=== PATIENT | male | born 1990 | race Caucasian/White ===

== ENCOUNTER 2017-04-09 10:46 | Inpatient (IN) | payer OTHER ==
[2017-04-09] MEDS ORDERED: SODIUM CHLORIDE 0.9% 1,000 ML IV STA (12:56)
[2017-04-09] MEDS ORDERED: HYDROmorphone 1 MG/ML 1 ML SYRINGE IVP STA (12:56)
[2017-04-09] MEDS ORDERED: AMPICILLIN-SULBACTAM 3 GM in SODIUM CHLORIDE 0.9% 100 ML IVPB STA (12:57)
[2017-04-09 13:38] LABS: Basophils % (A) 0 %; Eosinophils % (A) 0 %; HCT 42.9 % (39.0-53.0); HGB 14.4 gm/dL (13.0-17.5); Lymphocytes # (A) 0.8 k/uL (1.0-4.8); Lymphocytes % (A) 6 %; MCH 29.4 pg (25.0-35.0); MCHC 33.7 g/dL (31.0-37.0); MCV 87.3 fL (80.0-100.0); Monocytes # (A) 0.4 k/uL (0-1.0); Monocytes % (A) 3 %; Neutrophils # (A) 11.2 k/uL (1.3-7.7); Neutrophils % (A) 89 %; Platelet Count 189 k/uL (150-450); RBC 4.91 m/uL (4.30-5.90); WBC 12.6 k/uL (3.8-10.6)
--- NOTE | 2017-04-09 13:39 | ED ---
General Adult HPI <Supa Meredith - Last Filed: 04/09/17 15:35> - General Source: patient, RN notes reviewed, old records reviewed Mode of arrival: ambulatory Limitations: no limitations <Danyelle Gusman - Last Filed: 04/09/17 15:57> - General Chief complaint: Dental/Oral Stated complaint: facial swelling Time Seen by Provider: 04/09/17 12:12 - History of Present Illness Initial comments: This is a 26-year-old male who presents to the emergency department with chief complaint of facial swelling. Patient was seen by myself yesterday in the emergency department with complaint of left upper lip swelling. 2 nights ago he attempted to pop a small pimple on his left upper lip and when he woke the next morning his lip was tender and swollen. On exam yesterday left upper lip was indurated and firm. Today patient presents to the emergency department with chief complaint of spreading of the swelling. He states when he awoke this morning his left jaw, cheek and eye were swollen and tender. He states that his left upper lip has progressively worsened as well. Patient states that he had some amoxicillin left over at home so took that last night. He did not moss picker his prescription of Bactrim today as he came straight to the emergency department. Denies fever, chills, chest pain, shortness of breath, abdominal pain, nausea or vomiting, constipation or diarrhea, dysuria or hematuria, numbness or tingling, headache or vision changes. (Danyelle Gusman) - Related Data Previous Rx's Medication Instructions Recorded Cephalexin [Keflex] 500 mg PO Q12HR #20 cap 04/08/17 Sulfamethox-Tmp 800-160Mg [Bactrim 1 tab PO Q12HR #20 tab 04/08/17 DS 800-160 mg] Allergies Allergy/AdvReac Type Severity Reaction Status Date / Time ibuprofen [From Motrin] AdvReac Rash/Hives Verified 04/09/17 13:29 Review of Systems ROS Other: All systems not noted in ROS Statement are negative. <Supa Meredith - Last Filed: 04/09/17 15:35> ROS Other: All systems not noted in ROS Statement are negative. <Danyelle Gusman - Last Filed: 04/09/17 15:57> ROS Statement: Those systems with pertinent positive or pertinent negative responses have been documented in the HPI. Past Medical History Past Medical History: Diabetes Mellitus History of Any Multi-Drug Resistant Organisms: None Reported Past Surgical History: Cholecystectomy Past Psychological History: No Psychological Hx Reported Smoking Status: Never smoker Past Alcohol Use History: Occasional Past Drug Use History: None Reported <Danyelle Gusman - Last Filed: 04/09/17 15:57> General Exam Limitations: no limitations <Danyelle Gusman - Last Filed: 04/09/17 15:57> Course <Supa Meredith - Last Filed: 04/09/17 15:35> <[place]cliff LakeGerard brownDanyelle Salty - Last Filed: 04/09/17 15:57> Vital Signs 04/09/17 04/09/17 04/09/17 11:17 13:33 13:42 Temperature 99 F 98.1 F Pulse Rate 112 H 104 H 99 Respiratory 18 15 Rate Blood Pressure 136/96 142/85 142/95 O2 Sat by Pulse 99 97 100 Oximetry 04/09/17 15:13 Temperature Pulse Rate 117 H Respiratory 18 Rate Blood Pressure 134/88 O2 Sat by Pulse 100 Oximetry - Reevaluation(s) Reevaluation #1: 04/09/17 15:35 PA supervision: I did proceed evaluate the patient did discuss findings with him and family members or present. Patient does demonstrate a facial cellulitis on the left likely secondary from his previous episode that prompted his last admission. He does have evidence of DKA. We placed on insulin drip with appropriate antibiotics. They come ice will be started. I did discuss the case with Dr. Hayward (Supa Meredith) Medical Decision Making - Lab Data Result diagrams: 04/09/17 13:24 04/09/17 13:24 <Supa Meredith - Last Filed: 04/09/17 15:35> - Lab Data Result diagrams: 04/09/17 13:24 04/09/17 13:24 <[place]cliff LakeDanyelle Salty - Last Filed: 04/09/17 15:57> - Medical Decision Making This is a 26-year-old male who presents to the emergency department with chief complaint of left-sided facial swelling. Labs were drawn and patient was started on 3 g of IV Unasyn. Patient has a history of diabetes. Patient had a glucose of 581 with a positive acetone, 4+ glucose and 2+ ketones in the urine. Patient was given 8 units of Humulin while in the emergency department. This brought his glucose down to 344. CBC revealed a slightly elevated white count at 12.8 with left shift at 11.2. Patient will be admitted to the telemetry floor with diagnoses of DKA and facial cellulitis under Dr. Hayward. He'll be started on vancomycin and an insulin drip. Patient is in no acute distress at this time. Patient was made aware of these findings and plan. He is in agreement voices understanding. All questions were answered. (Danyelle Gusman) - Lab Data Lab Results 04/09/17 04/09/17 04/09/17 Range/Units 13:24 13:24 13:24 WBC 12.6 H (3.8-10.6) k/uL RBC 4.91 (4.30-5.90) m/uL Hgb 14.4 (13.0-17.5) gm/dL Hct 42.9 (39.0-53.0) % MCV 87.3 (80.0-100.0) fL MCH 29.4 (25.0-35.0) pg MCHC 33.7 (31.0-37.0) g/dL RDW 12.0 (11.5-15.5) % Plt Count 189 (150-450) k/uL Neutrophils % 89 % Lymphocytes % 6 % Monocytes % 3 % Eosinophils % 0 % Basophils % 0 % Neutrophils # 11.2 H (1.3-7.7) k/uL Lymphocytes # 0.8 L (1.0-4.8) k/uL Monocytes # 0.4 (0-1.0) k/uL Eosinophils # 0.0 (0-0.7) k/uL Basophils # 0.0 (0-0.2) k/uL Sodium 132 L (137-145) mmol/L Potassium 4.5 (3.5-5.1) mmol/L Chloride 94 L (98-107) mmol/L Carbon Dioxide 18 L (22-30) mmol/L Anion Gap 20 mmol/L BUN 10 (9-20) mg/dL Creatinine 0.93 (0.66-1.25) mg/dL Est GFR (MDRD) Af Amer >60 (>60 ml/min/1.73 sqM) Est GFR (MDRD) Non-Af >60 (>60 ml/min/1.73 sqM) Glucose 581 H* (74-99) mg/dL POC Glucose (mg/dL) (75-99) mg/dL POC Glu Can Cutter ID Calcium 9.1 (8.4-10.2) mg/dL Total Bilirubin 1.1 (0.2-1.3) mg/dL AST 23 (17-59) U/L ALT 47 (21-72) U/L Alkaline Phosphatase 146 H (38-126) U/L Total Protein 5.9 L (6.3-8.2) g/dL Albumin 3.5 (3.5-5.0) g/dL Urine Color Urine Appearance (Clear) Urine pH (5.0-8.0) Ur Specific [place] (1.001-1.035) Urine Protein (Negative) Urine Glucose (UA) (Negative) Urine Ketones (Negative) Urine Blood (Negative) Urine Nitrite (Negative) Urine Bilirubin (Negative) Urine Urobilinogen (<2.0) mg/dL Ur Leukocyte Esterase (Negative) Acetone, Qual Positive (Negative) 04/09/17 04/09/17 Range/Units 14:39 15:37 WBC (3.8-10.6) k/uL RBC (4.30-5.90) m/uL Hgb (13.0-17.5) gm/dL Hct (39.0-53.0) % MCV (80.0-100.0) fL MCH (25.0-35.0) pg MCHC (31.0-37.0) g/dL RDW (11.5-15.5) % Plt Count (150-450) k/uL Neutrophils % % Lymphocytes % % Monocytes % % Eosinophils % % Basophils % % Neutrophils # (1.3-7.7) k/uL Lymphocytes # (1.0-4.8) k/uL Monocytes # (0-1.0) k/uL Eosinophils # (0-0.7) k/uL Basophils # (0-0.2) k/uL Sodium (137-145) mmol/L Potassium (3.5-5.1) mmol/L Chloride (98-107) mmol/L Carbon Dioxide (22-30) mmol/L Anion Gap mmol/L BUN (9-20) mg/dL Creatinine (0.66-1.25) mg/dL Est GFR (MDRD) Af Amer (>60 ml/min/1.73 sqM) Est GFR (MDRD) Non-Af (>60 ml/min/1.73 sqM) Glucose (74-99) mg/dL POC Glucose (mg/dL) 344 H (75-99) mg/dL POC Glu Can Cutter ID Wendy Flynn Calcium (8.4-10.2) mg/dL Total Bilirubin (0.2-1.3) mg/dL AST (17-59) U/L ALT (21-72) U/L Alkaline Phosphatase (38-126) U/L Total Protein (6.3-8.2) g/dL Albumin (3.5-5.0) g/dL Urine Color Colorless Urine Appearance Clear (Clear) Urine pH 5.5 (5.0-8.0) Ur Specific [place] 1.023 (1.001-1.035) Urine Protein Negative (Negative) Urine Glucose (UA) 4+ H (Negative) Urine Ketones 2+ H (Negative) Urine Blood Negative (Negative) Urine Nitrite Negative (Negative) Urine Bilirubin Negative (Negative) Urine Urobilinogen <2.0 (<2.0) mg/dL Ur Leukocyte Esterase Negative (Negative) Acetone, Qual (Negative) Disposition <Supa Meredith - Last Filed: 04/09/17 15:35> Time of Disposition: 15:57 <Danyelle Gusman - Last Filed: 04/09/17 15:57> Clinical Impression: Diabetic keto-acidosis, Facial cellulitis Disposition: ADMITTED IP TO THIS HOSP Condition: Stable Referrals: None,Stated [Primary Care Provider] - 1-2 days
[2017-04-09 13:46] LABS: ALT 47 U/L (21-72); AST 23 U/L (17-59); Albumin 3.5 g/dL (3.5-5.0); Alkaline Phosphatase 146 U/L (38-126); Anion Gap 20 mmol/L; Blood Urea Nitrogen 10 mg/dL (9-20); Calcium 9.1 mg/dL (8.4-10.2); Carbon Dioxide 18 mmol/L (22-30); Chloride 94 mmol/L (98-107); Potassium 4.5 mmol/L (3.5-5.1); Sodium 132 mmol/L (137-145); Total Bilirubin 1.1 mg/dL (0.2-1.3); Total Protein 5.9 g/dL (6.3-8.2)
[2017-04-09 13:55] LABS: Glucose 581 mg/dL (74-99)
[2017-04-09] MEDS ORDERED: INSULIN REGULAR 100 UNIT/ML VIAL IV ONE (14:18)
[2017-04-09 14:42] LABS: Appearance,Urine Clear (Clear); Bilirubin,Urine Negative (Negative); Blood,Urine Negative (Negative); Color,Urine Colorless; Glucose,Urine (UA) 4+ (Negative); Leukocyte Esterase,Urine Negative (Negative); Nitrite,Urine Negative (Negative); PH, Urine 5.5 (5.0-8.0); Protein,Urine Negative (Negative); Specific Gravity,Urine 1.023 (1.001-1.035); Urobilinogen,Urine <2.0 mg/dL (<2.0)
[2017-04-09 14:47] LABS: Ketones,Urine 2+ (Negative)
[2017-04-09 15:38] LABS: Glucose,Whole Blood 344 mg/dL (75-99)
[2017-04-09] MEDS ORDERED: ONDANSETRON 4 MG/2 ML VIAL IVP PRN (15:42)
[2017-04-09] MEDS ORDERED: ACETAMINOPHEN TAB 325 MG TAB PO PRN (15:42)
[2017-04-09] MEDS ORDERED: NALOXONE 0.4 MG/ML 1 ML VIAL IV PRN (15:42)
[2017-04-09] MEDS ORDERED: INSULIN REGULAR 100 UNIT in SODIUM CHLORIDE 0.9% 100 ML IV SCH (15:45)
[2017-04-09] MEDS ORDERED: VANCOMYCIN IV PER PHARMACY 1 EACH MISC MISCELLANE PRN (15:49)
[2017-04-09] MEDS ORDERED: VANCOMYCIN 1,250 MG in SODIUM CHLORIDE 0.9% 250 ML IVPB STA (15:58)
[2017-04-09] MEDS: HYDROmorphone 1 MG/ML 1 ML SYRINGE IVP PRN ×3 (16:35→23:08)
[2017-04-09 17:38] LABS: Anion Gap 15 mmol/L; Blood Urea Nitrogen 9 mg/dL (9-20); Carbon Dioxide 21 mmol/L (22-30); Chloride 97 mmol/L (98-107); Glucose 370 mg/dL (74-99); Potassium 4.3 mmol/L (3.5-5.1); Sodium 133 mmol/L (137-145)
[2017-04-09] MEDS ORDERED: RX INFO: IV CONTRAST WAS GIVEN 1 EACH MISC MISCELLANE PRN (17:50)
--- NOTE | 2017-04-09 17:56 | P.HPIM ---
History of Present Illness H&P Date: 04/09/17 Chief Complaint: Left facial swelling/pain 26-year-old male who presents to the emergency department with chief complaint of left sided facial swelling, redness and pain. Patient was seen in the emergency department yesterday with complaint of left upper lip swelling. 2 nights ago he attempted to pop a small pimple on his left upper lip and when he woke the next morning his lip was tender and swollen. According to the emergency physician's note yesterday his left upper lip was indurated and firm. Today patient presents to the emergency department with chief complaint of spreading of the swelling, redness to all of the left side of the face. He states when he awoke this morning his left jaw, cheek and eye were swollen and painful. Patient states that he had some amoxicillin left over at home so took that last night. He did not refill his prescription of Bactrim that he was given yesterday in the emergency department. Denies fever, chills, chest pain, shortness of breath, abdominal pain, nausea or vomiting, constipation or diarrhea, dysuria or hematuria, numbness or tingling, headache or vision changes. Review of Systems 12 point review of system was performed, negative except for HPI Past Medical History Past Medical History: Diabetes Mellitus (type 1) History of Any Multi-Drug Resistant Organisms: None Reported Past Surgical History: Cholecystectomy Past Psychological History: No Psychological Hx Reported Smoking Status: Never smoker Past Alcohol Use History: Occasional Past Drug Use History: None Reported Medications and Allergies Home Medications Medication Instructions Recorded Confirmed Type Cephalexin [Keflex] 500 mg PO Q12HR #20 cap 04/08/17 04/09/17 Rx Sulfamethox-Tmp 800-160Mg [Bactrim 1 tab PO Q12HR #20 tab 04/08/17 04/09/17 Rx DS 800-160 mg] Allergies Allergy/AdvReac Type Severity Reaction Status Date / Time ibuprofen [From Motrin] AdvReac Rash/Hives Verified 04/09/17 13:29 Physical Exam Vitals: Vital Signs Temp Pulse Resp BP Pulse Ox 04/09/17 15:13 117 H 18 134/88 100 04/09/17 13:42 98.1 F 99 15 142/95 100 04/09/17 13:33 104 H 142/85 97 04/09/17 11:17 99 F 112 H 18 136/96 99 Intake and Output 04/09/17 04/09/17 04/09/17 06:59 14:59 22:59 Other: Weight 72.575 kg Patient Weight 04/10/17 06:59 Weight 72.575 kg Constitutional: No acute distress, conversant, pleasant Eyes:Anicteric sclerae, moist conjunctiva, no lid-lag, PERRLA, ENMT: left face swollen and there is scattered erythema, left side of the lip swollen and erythematous, Oropharynx clear, no erythema, exudates Neck: Supple, FROM, no masses, or JVD, No carotid bruits, No thyromegaly Lungs: Clear to auscultation, Clear to percussion, Normal respiratory effort, no accessory muscle use Cardiovascular: tachycardic, regular, No murmurs, gallops, or rubs, No peripheral edema Abdominal: Soft, Nontender, no guarding, rebound or rigidity, Normoactive bowel sounds, No hepatomegaly, No splenomegaly, No palpable mass Skin: Normal temperature, tone, texture, turgor, no induration, No subcutaneous nodules, No rash, lesions, No ulcers Extremities: No digital cyanosis, No clubbing, Pedal pulses intact and symmetrical, Radial pulses intact and symmetrical, No calf tenderness Psychiatric: Alert and oriented to person, place and time, appropriate affect, intact judgement Neuro: Muscles Strength 5/5 in all 4 extremities, Sensation to light touch grossly present throughout, Cranial nerves II-XII grossly intact, no focal sensory deficits Results CBC & Chem 7: 04/09/17 13:24 04/09/17 17:20 Labs: Abnormal Lab Results - Last 24 Hours (Table) 04/09/17 04/09/17 04/09/17 Range/Units 13:24 13:24 14:39 WBC 12.6 H (3.8-10.6) k/uL Neutrophils # 11.2 H (1.3-7.7) k/uL Lymphocytes # 0.8 L (1.0-4.8) k/uL Sodium 132 L (137-145) mmol/L Chloride 94 L (98-107) mmol/L Carbon Dioxide 18 L (22-30) mmol/L Glucose 581 H* (74-99) mg/dL POC Glucose (mg/dL) (75-99) mg/dL Alkaline Phosphatase 146 H (38-126) U/L Total Protein 5.9 L (6.3-8.2) g/dL Urine Glucose (UA) 4+ H (Negative) Urine Ketones 2+ H (Negative) 04/09/17 Range/Units 15:37 WBC (3.8-10.6) k/uL Neutrophils # (1.3-7.7) k/uL Lymphocytes # (1.0-4.8) k/uL Sodium (137-145) mmol/L Chloride (98-107) mmol/L Carbon Dioxide (22-30) mmol/L Glucose (74-99) mg/dL POC Glucose (mg/dL) 344 H (75-99) mg/dL Alkaline Phosphatase (38-126) U/L Total Protein (6.3-8.2) g/dL Urine Glucose (UA) (Negative) Urine Ketones (Negative) Assessment and Plan Plan: 1-Acute left facial cellulitis/questionable abscess/Acute sepsis: Consult general surgery for possible drainage Start broad-spectrum IV antibiotics with Zosyn and vancomycin Labs reviewed Check lactic acid. Blood cultures Patient has sepsis because he is tachycardic, has leukocytosis and evident source of infection. 2- Diabetic ketoacidosis: Likely induced by #1 Insulin drip with blood sugar checks every 1 hours BMP every 6hr Hold insulin drip and start subcu insulin once gap closes 3- DVT prophylaxis: SCDs Sepsis - Sepsis Sepsis Focused Exam #1 Sepsis Focused Exam Date: 04/09/17 Sepsis Focused Exam Time: 16:30 Sepsis Focused Exam Complete: Yes Vital Signs & RN Notes Reviewed: Yes Capillary Refill: < 2 Seconds: Fingers, Toes Peripheral Pulses: Normal: Radial (R), Radial (L), Posterior Tibialis (R), Posterior Tibialis (L), Dorsalis Pedis (R), Dorsalis Pedis (L) Skin Color: Flushed
[2017-04-09 18:14] LABS: Glucose,Whole Blood 469 mg/dL (75-99)
[2017-04-09] MEDS ORDERED: D5-0.45% NACL WITH KCL 20MEQ/L 1,000 ML IV SCH (19:00)
[2017-04-09 19:33] LABS: Glucose,Whole Blood 310 mg/dL (75-99)
[2017-04-09] MEDS ORDERED: SODIUM CHLORIDE 0.9% 1,000 ML IV ONE (19:46)
[2017-04-09] MEDS: PIPERACILLIN-TAZOBACTAM 3.375 GM in DEXTROSE/WATER 1 50ML.BAG IVPB SCH ×2 (20:00→20:56)
--- NOTE | 2017-04-09 20:27 | CT ---
EXAMINATION TYPE: CT facial bones w con DATE OF EXAM: 04/09/2017 COMPARISON: NONE HISTORY: Left side facial swelling and redness x2 days. CT DLP: 660.8 mGycm Automated exposure control for dose reduction was used. CONTRAST: CT scan of the facial bones is performed with IV Contrast, patient injected with 55 mL of Omnipaque 3 00. TECHNIQUE: CT scan of the sinuses is performed without contrast, axial images are obtained, coronal r eformatted images are also reviewed. FINDINGS: The orbital margins are intact. There is no evidence of a blowout fracture. There is normal aeration of the paranasal sinuses. I see no bony destructive process. There is bilateral patency of the ostiomeatal complex. Mandible appears intact. Zygomatic arches appear normal. The maxilla is inta ct. There is soft tissue subcutaneous edema and swelling anterior to the left side of the maxilla and mandible. There is also left-sided lateral neck soft tissue swelling. I see no focal bone destructio n. I see no pathologic enhancement. IMPRESSION: Left-sided facial soft tissue swelling consistent with cellulitis. No definite abscess.
[2017-04-09 20:45] LABS: Glucose,Whole Blood 215 mg/dL (75-99)
--- NOTE | 2017-04-09 20:49 | P.PN ---
Progress Note - Text Hospitalist interval note: Patient lactic acid 7.1 and rapidly falling blood sugars. Patient seen and examined at bedside. He denies any difficulty controlling his secretions, he is having some drooling out of the left side of his mouth due to the inability to fully close his mouth. He denies any shortness of breath or feeling like his throat is closing. He denies any chest pain, palpitations, shortness of breath, or lightheaded and dizziness. He states that he typically takes Lantus 15 units at night plus sliding scale insulin with a 15-1 carb correction ratio. He states that his last hemoglobin A1c was 11. The last time he was in DKA was approximately one year ago. Before that he was in DKA frequently when he was on an insulin pump. He recently moved to the area. He had only been taking his family doctor not an hotel yardperson recently. His have been running 100 to 150s at home, but have been significantly elevated for the last several days. General: ill aappearing, no distress, appears at stated age Derm: warm, dry, erythema over the left side of his face wtih significant swelling. Slight area of purlence over left internal upper lip. Head: atraumatic, normocephalic, symmetric Eyes: EOMI, no lid lag, anicteric sclera Mouth: no lip lesion, mucus membranes moist, throat clear without signs of compromise. Cardiovascular: S1S2 reg, no murmur, positive posterior tibial pulse bilateral, Lungs: CTA bilateral, no rhonchi, no rales , no accessory muscle use Assessment and Plan: 1. DKA with significant lactic acid- will need to go off protocol as patient needs NS to help with lactic acidosis and is currently getting a bolus. Instead of transitioning to D5 0.45 NS will decrease insulin gtt to 5 units/hr and maintain NS at this point in time. Nursing at bedside. Will recheck BS at 2130 and will call me so that we can adjust from there, Will order a repeat lactic acid as well and continue to follow. 2. Has significant protein in his urine. Once sepsis is resolved would benefit from ACEI. CT reviewed without definitive abscess. Dr. Watson info added to Discharge. Justine Garza DO.
[2017-04-09] MEDS: SODIUM CHLORIDE 0.9% 1,000 ML IV SCH (20:55)
[2017-04-09 21:37] LABS: Glucose,Whole Blood 201 mg/dL (75-99)
[2017-04-09 22:02] LABS: Anion Gap 9 mmol/L; Blood Urea Nitrogen 9 mg/dL (9-20); Carbon Dioxide 25 mmol/L (22-30); Chloride 99 mmol/L (98-107); Glucose 190 mg/dL (74-99); Potassium 3.8 mmol/L (3.5-5.1); Sodium 133 mmol/L (137-145)
[2017-04-09 22:59] LABS: Glucose,Whole Blood 127 mg/dL (75-99)
[2017-04-09 23:57] LABS: Glucose,Whole Blood 98 mg/dL (75-99)
[2017-04-10] MEDS: INSULIN DETEMIR 100 UNIT/ML 10 ML VIAL SQ SCH ×2 (00:06→21:47)
[2017-04-10] MEDS: PIPERACILLIN-TAZOBACTAM 3.375 GM in DEXTROSE/WATER 1 50ML.BAG IVPB SCH ×5 (00:06→23:40)
[2017-04-10] MEDS: VANCOMYCIN 1,250 MG in SODIUM CHLORIDE 0.9% 250 ML IVPB SCH ×4 (00:06→23:41)
[2017-04-10 01:08] LABS: Hemoglobin A1C 13.3 % (4.0-6.0)
[2017-04-10] MEDS ORDERED: INSULIN ASPART 100 UNIT/ML 1 ML 10 ML VIAL SQ ONE (01:20)
[2017-04-10 01:30] LABS: Glucose,Whole Blood 323 mg/dL (75-99)
[2017-04-10] MEDS: HYDROmorphone 1 MG/ML 1 ML SYRINGE IVP PRN ×7 (02:02→21:25)
[2017-04-10] MEDS ORDERED: ACETAMINOPHEN SUPPOSITORY 650 MG SUPP RECTAL PRN (03:06)
[2017-04-10] MEDS ORDERED: NALOXONE 0.4 MG/ML 1 ML VIAL IV PRN (03:06)
--- NOTE | 2017-04-10 03:06 | P.PN ---
Progress Note - Text Progress Note Date: 04/10/17 Hospitalist interval note: Called by patient's nurse Savanna regarding increase in patients swelling. Patient seen and examined at bedside. He reports increase pressure in his lip and feeling that his eye is swelling. He reports slightly more secretions. He also complains of his throat feeling itchy. He denies any shortness of breath or feeling as though his throat is closing. He states this is how his swelling felt prior to coming to the hospital Gen.: Ill appearing, mild distress HEENT: Left-sided facial swelling with asymmetry of upper lip. Upper lip had been swollen on the left side only and this is increasing to the right side, increased swelling under left eye. No swelling of the soft tissues of the neck or crepitus felt, no bulging of the floor of the orophaynx, slight protrusion of the left tonsillar area, no definitive airway compromise seen, no decreased ability to rotate neck. Continued cough. Concern for impending airway compromise of swelling continues. Appears to be stable at this point in time. We will transfer to ICU for closer airway monitoring. Case was discussed with Dr. Joaquin. DKA is resolved and patient is off of insulin drip. He was given 10 units of Levemir and placed on sliding scale insulin. His lactic acid has also improved from 7.1 down to 2.3. CT of the facial bones reviewed and reveals left-sided facial swelling but no definitive abscess. Justine Garza DO
[2017-04-10 03:26] LABS: Glucose,Whole Blood 174 mg/dL (75-99)
[2017-04-10] MEDS: SODIUM CHLORIDE 0.9% 1,000 ML IV SCH ×6 (04:16→21:41)
[2017-04-10 04:29] LABS: Basophils # (A) 0.1 k/uL (0-0.2); Basophils % (A) 1 %; Eosinophils # (A) 0.1 k/uL (0-0.7); Eosinophils % (A) 1 %; HCT 37.3 % (39.0-53.0); HGB 12.4 gm/dL (13.0-17.5); Lymphocytes % (A) 10 %; MCH 28.9 pg (25.0-35.0); MCHC 33.3 g/dL (31.0-37.0); MCV 86.6 fL (80.0-100.0); Mean Platelet Volume 6.7; Monocytes # (A) 0.4 k/uL (0-1.0); Monocytes % (A) 4 %; Neutrophils # (A) 8.5 k/uL (1.3-7.7); Neutrophils % (A) 83 %; Platelet Count 174 k/uL (150-450); RBC 4.31 m/uL (4.30-5.90); WBC 10.2 k/uL (3.8-10.6)
[2017-04-10 04:51] LABS: ALT 48 U/L (21-72); AST 62 U/L (17-59); Albumin 2.6 g/dL (3.5-5.0); Alkaline Phosphatase 114 U/L (38-126); Anion Gap 8 mmol/L; Blood Urea Nitrogen 10 mg/dL (9-20); Calcium 8.4 mg/dL (8.4-10.2); Carbon Dioxide 24 mmol/L (22-30); Chloride 99 mmol/L (98-107); Glucose 223 mg/dL (74-99); Magnesium 1.7 mg/dL (1.6-2.3); Phosphorus 2.7 mg/dL (2.5-4.5); Potassium 3.9 mmol/L (3.5-5.1); Sodium 131 mmol/L (137-145); Total Bilirubin 0.5 mg/dL (0.2-1.3); Total Protein 4.9 g/dL (6.3-8.2)
[2017-04-10] MEDS ORDERED: Potassium Replacement Protocol 1 EACH MISC MISCELLANE PRN (05:27)
[2017-04-10] MEDS ORDERED: Magnesium Replacement Protocol 1 EACH MISC MISCELLANE PRN (05:27)
[2017-04-10] MEDS ORDERED: POTASSIUM CHLORIDE ER 20 MEQ TAB.ER PO SCH (06:00)
[2017-04-10] MEDS: MAGNESIUM SULFATE-D5W PMX 1 GM in DEXTROSE/WATER 1 100ML.BAG IVPB SCH ×2 (06:53→08:34)
[2017-04-10 07:34] LABS: Glucose,Whole Blood 172 mg/dL (75-99)
[2017-04-10] MEDS: INSULIN ASPART 100 UNIT/ML 1 ML 10 ML VIAL SQ SCH ×4 (08:34→21:47)
[2017-04-10] MEDS: HEPARIN SODIUM,PORCINE 5,000 UNIT/ML 1 ML VIAL SQ SCH ×3 (08:34→23:37)
[2017-04-10] MEDS: PANTOPRAZOLE 40 MG TABLET PO SCH (08:55)
[2017-04-10 11:59] LABS: Glucose,Whole Blood 145 mg/dL (75-99)
[2017-04-10 12:35] LABS: Glucose,Whole Blood 134 mg/dL (75-99)
--- NOTE | 2017-04-10 13:23 | P.PN ---
Subjective Progress Note Date: 04/10/17 Principal diagnosis: Left facial swelling and pain. Patient is feeling worse this morning. The pain and swelling in his left face got worse compared to yesterday. ENT physician has not been in to see patient yet. Objective - Vital Signs Vital signs: Vital Signs Temp 99.0 F 04/10/17 12:00 Pulse 107 H 04/10/17 12:00 Resp 17 04/10/17 12:00 BP 133/79 04/10/17 12:00 Pulse Ox 94 L 04/10/17 12:00 Intake & Output 04/09/17 04/10/17 04/10/17 18:59 06:59 18:59 Intake Total 6.475 358.230 9802 Output Total 0 Balance 6.475 135.233 8948 Weight 72.575 kg 72.575 kg Intake: IV 500 500 Sodium Chloride 0.9% 1, 500 500 000 ml @ 150 mls/hr IV . Q6H40M [facility] Rx#:[id number] Intake, IV Titration 6.475 24.172 500 Amount Insulin Regular 100 unit 6.475 24.172 In Sodium Chloride 0.9% 100 ml @ 0.1 UNITS/KG/HR 7.33 mls/hr IV .[id number] [facility] Rx#:[id number] Magnesium Sulfate-D5w Pmx 200 1 gm In Dextrose/Water 1 100ml.bag @ 100 mls/hr IVPB Q1H [facility] Rx#: [id number] Piperacillin-Tazobactam 3 50 .375 gm In Dextrose/Water 1 50ml.bag @ 12.5 mls/hr IVPB Q8HR [facility] Rx#: [id number] Vancomycin 1,250 mg In 250 Sodium Chloride 0.9% 250 ml @ 125 mls/hr IVPB Q8HR [facility] Rx#:[id number] Output: Urine 0 Other: Voiding Method Urinal Urinal # Voids 1 - Exam Constitutional: No acute distress, conversant, pleasant Eyes:Anicteric sclerae, moist conjunctiva, no lid-lag, PERRLA, ENMT: left face swollen and there is scattered erythema, left side of the lip swollen and erythematous, Oropharynx clear, no erythema, exudates Neck: Supple, FROM, no masses, or JVD, No carotid bruits, No thyromegaly Lungs: Clear to auscultation, Clear to percussion, Normal respiratory effort, no accessory muscle use Cardiovascular: tachycardic, regular, No murmurs, gallops, or rubs, No peripheral edema Abdominal: Soft, Nontender, no guarding, rebound or rigidity, Normoactive bowel sounds, No hepatomegaly, No splenomegaly, No palpable mass Skin: Normal temperature, tone, texture, turgor, no induration, No subcutaneous nodules, No rash, lesions, No ulcers Extremities: No digital cyanosis, No clubbing, Pedal pulses intact and symmetrical, Radial pulses intact and symmetrical, No calf tenderness Psychiatric: Alert and oriented to person, place and time, appropriate affect, intact judgement Neuro: Muscles Strength 5/5 in all 4 extremities, Sensation to light touch grossly present throughout, Cranial nerves II-XII grossly intact, no focal sensory deficits - Labs CBC & Chem 7: 04/10/17 04:03 04/10/17 04:03 Labs: Abnormal Lab Results - Last 24 Hours (Table) 04/09/17 04/09/17 04/09/17 Range/Units 13:24 13:24 13:24 WBC 12.6 H (3.8-10.6) k/uL Hgb (13.0-17.5) gm/dL Hct (39.0-53.0) % Neutrophils # 11.2 H (1.3-7.7) k/uL Lymphocytes # 0.8 L (1.0-4.8) k/uL Sodium 132 L (137-145) mmol/L Chloride 94 L (98-107) mmol/L Carbon Dioxide 18 L (22-30) mmol/L Glucose 581 H* (74-99) mg/dL POC Glucose (mg/dL) (75-99) mg/dL Hemoglobin A1c 13.3 H (4.0-6.0) % Plasma Lactic Acid Koko (0.7-2.0) mmol/L AST (17-59) U/L Alkaline Phosphatase 146 H (38-126) U/L Total Protein 5.9 L (6.3-8.2) g/dL Albumin (3.5-5.0) g/dL Urine Glucose (UA) (Negative) Urine Ketones (Negative) 04/09/17 04/09/17 04/09/17 Range/Units 14:39 15:37 17:20 WBC (3.8-10.6) k/uL Hgb (13.0-17.5) gm/dL Hct (39.0-53.0) % Neutrophils # (1.3-7.7) k/uL Lymphocytes # (1.0-4.8) k/uL Sodium 133 L (137-145) mmol/L Chloride 97 L (98-107) mmol/L Carbon Dioxide 21 L (22-30) mmol/L Glucose 370 H (74-99) mg/dL POC Glucose (mg/dL) 344 H (75-99) mg/dL Hemoglobin A1c (4.0-6.0) % Plasma Lactic Acid Koko (0.7-2.0) mmol/L AST (17-59) U/L Alkaline Phosphatase (38-126) U/L Total Protein (6.3-8.2) g/dL Albumin (3.5-5.0) g/dL Urine Glucose (UA) 4+ H (Negative) Urine Ketones 2+ H (Negative) 04/09/17 04/09/17 04/09/17 Range/Units 18:13 18:55 19:12 WBC (3.8-10.6) k/uL Hgb (13.0-17.5) gm/dL Hct (39.0-53.0) % Neutrophils # (1.3-7.7) k/uL Lymphocytes # (1.0-4.8) k/uL Sodium (137-145) mmol/L Chloride (98-107) mmol/L Carbon Dioxide (22-30) mmol/L Glucose (74-99) mg/dL POC Glucose (mg/dL) 469 H 310 H (75-99) mg/dL Hemoglobin A1c (4.0-6.0) % Plasma Lactic Acid Koko 7.1 H* (0.7-2.0) mmol/L AST (17-59) U/L Alkaline Phosphatase (38-126) U/L Total Protein (6.3-8.2) g/dL Albumin (3.5-5.0) g/dL Urine Glucose (UA) (Negative) Urine Ketones (Negative) 04/09/17 04/09/17 04/09/17 Range/Units 20:33 21:26 21:34 WBC (3.8-10.6) k/uL Hgb (13.0-17.5) gm/dL Hct (39.0-53.0) % Neutrophils # (1.3-7.7) k/uL Lymphocytes # (1.0-4.8) k/uL Sodium 133 L (137-145) mmol/L Chloride (98-107) mmol/L Carbon Dioxide (22-30) mmol/L Glucose 190 H (74-99) mg/dL POC Glucose (mg/dL) 215 H 201 H (75-99) mg/dL Hemoglobin A1c (4.0-6.0) % Plasma Lactic Acid Koko (0.7-2.0) mmol/L AST (17-59) U/L Alkaline Phosphatase (38-126) U/L Total Protein (6.3-8.2) g/dL Albumin (3.5-5.0) g/dL Urine Glucose (UA) (Negative) Urine Ketones (Negative) 04/09/17 04/09/17 04/10/17 Range/Units 22:57 22:57 01:11 WBC (3.8-10.6) k/uL Hgb (13.0-17.5) gm/dL Hct (39.0-53.0) % Neutrophils # (1.3-7.7) k/uL Lymphocytes # (1.0-4.8) k/uL Sodium (137-145) mmol/L Chloride (98-107) mmol/L Carbon Dioxide (22-30) mmol/L Glucose (74-99) mg/dL POC Glucose (mg/dL) 127 H 323 H (75-99) mg/dL Hemoglobin A1c (4.0-6.0) % Plasma Lactic Acid Koko 2.1 H* (0.7-2.0) mmol/L AST (17-59) U/L Alkaline Phosphatase (38-126) U/L Total Protein (6.3-8.2) g/dL Albumin (3.5-5.0) g/dL Urine Glucose (UA) (Negative) Urine Ketones (Negative) 04/10/17 04/10/17 04/10/17 Range/Units 03:24 04:03 04:03 WBC (3.8-10.6) k/uL Hgb 12.4 L (13.0-17.5) gm/dL Hct 37.3 L (39.0-53.0) % Neutrophils # 8.5 H (1.3-7.7) k/uL Lymphocytes # (1.0-4.8) k/uL Sodium 131 L (137-145) mmol/L Chloride (98-107) mmol/L Carbon Dioxide (22-30) mmol/L Glucose 223 H (74-99) mg/dL POC Glucose (mg/dL) 174 H (75-99) mg/dL Hemoglobin A1c (4.0-6.0) % Plasma Lactic Acid Koko (0.7-2.0) mmol/L AST 62 H (17-59) U/L Alkaline Phosphatase (38-126) U/L Total Protein 4.9 L (6.3-8.2) g/dL Albumin 2.6 L (3.5-5.0) g/dL Urine Glucose (UA) (Negative) Urine Ketones (Negative) 04/10/17 04/10/17 04/10/17 Range/Units 04:03 07:32 11:56 WBC (3.8-10.6) k/uL Hgb (13.0-17.5) gm/dL Hct (39.0-53.0) % Neutrophils # (1.3-7.7) k/uL Lymphocytes # (1.0-4.8) k/uL Sodium (137-145) mmol/L Chloride (98-107) mmol/L Carbon Dioxide (22-30) mmol/L Glucose (74-99) mg/dL POC Glucose (mg/dL) 172 H 145 H (75-99) mg/dL Hemoglobin A1c (4.0-6.0) % Plasma Lactic Acid Koko 2.9 H* (0.7-2.0) mmol/L AST (17-59) U/L Alkaline Phosphatase (38-126) U/L Total Protein (6.3-8.2) g/dL Albumin (3.5-5.0) g/dL Urine Glucose (UA) (Negative) Urine Ketones (Negative) 04/10/17 Range/Units 12:34 WBC (3.8-10.6) k/uL Hgb (13.0-17.5) gm/dL Hct (39.0-53.0) % Neutrophils # (1.3-7.7) k/uL Lymphocytes # (1.0-4.8) k/uL Sodium (137-145) mmol/L Chloride (98-107) mmol/L Carbon Dioxide (22-30) mmol/L Glucose (74-99) mg/dL POC Glucose (mg/dL) 134 H (75-99) mg/dL Hemoglobin A1c (4.0-6.0) % Plasma Lactic Acid Koko (0.7-2.0) mmol/L AST (17-59) U/L Alkaline Phosphatase (38-126) U/L Total Protein (6.3-8.2) g/dL Albumin (3.5-5.0) g/dL Urine Glucose (UA) (Negative) Urine Ketones (Negative) Assessment and Plan Plan: 1-Acute left facial cellulitis/questionable abscess/Acute sepsis: Consult ENT for possible drainage Continue broad-spectrum IV antibiotics with Zosyn and vancomycin Labs reviewed Lactic acid trending down. Likely MRSA induced. Blood cultures Tachycardic and leukocytosis improving. Will follow cultures and WBC daily. 2- Diabetic ketoacidosis: Likely induced by #1 Resolved, AG closed Insulin drip d/feroz Start subcu insulin 3- DVT prophylaxis: SCDs
--- NOTE | 2017-04-10 14:55 | P.CNPUL ---
History of Present Illness Consult date: 04/10/17 Chief complaint: Facial abscess/cellulitis, DKA History of present illness: This is a pleasant 26-year-old male patient with type 1 diabetes mellitus maintained on Levemir insulin. The patient was in a good state of health until around 3-4 days ago where he popped a zip over the left lower lip corner. Subsequently within next 24-48 hours there has been significant changes along the left lip angle extending to his left face/cheek area and the patient started experiencing some facial swelling and redness and pain and this abnormality was extending to the lower edge of his left orbit. At the same time the patient was feeling increased pain and firmness and the cheek in the face area was quite indurated. He came into the emergency department with this complaint and he was identified to be in acute DKA. The patient's initial anion gap was around 20. His blood sugar was at 581. He was immediately admitted to the hospital and started on broad-spectrum antibiotics. He was also started on insulin drip and he was admitted to selective unit for further monitoring. The anion gap closed within next 12-24 hours and the patient was switched to long-acting Levemir insulin along with a sliding scale coverage. Overnight there was concern that they cellulitis of the face was getting worse and the hospitalist was attending a this patient was consented the patient may be progressing and he may even be having some airway compromise. Based on that the patient got moved to the intensive care unit and a pulmonary and critical care consultation was requested. I saw this patient this morning. In terms of his diabetes mellitus is anion gap is closed and his blood sugar is under better control. Nevertheless the facial abscess/cellulitis is quite a concern. There is obvious deformity which is evident on regular inspection. The left face cheek is quite swollen and the lip mainly the upper lip from the midline to the lip corner is quite swollen and tender and there is purulent material draining from the lip edge opening into the mouth. The buccal mucosa is quite inflamed and swollen in addition. The whole area is quite tender to touch and palpation. The swelling is mainly present over the lip area and to lesser extent to the face and extending to the left infraorbital area. The patient is able to speak. The patient does not have any respiratory difficulties. No signs of airway compromise and the patient has no stridor. A routine inspection his posterior oropharynx is quite patent. Note that he denies having any dental abscesses or jaw disease. The source of infection is thought to be related to the original pimple at the corner of his lip on the left side. No change in mental status. No headaches. No meningeal signs. Patient is covered with accommodation of Zosyn and vancomycin. A 80 consultation was placed in consultation for incision and drainage. I would like also to discuss this case with ENT in May consider transferring this patient to another facility where they have oral facial/maxillofacial expertise. Patient is hemodynamic is stable. The patient has no hypotension. Pulse oxing 93% on room air. He is afebrile for now. Computed tomography scan of the face showed normal examination of the past nasal sinuses. The posterior meatal complex was quite patent. There was soft tissue and subcutaneous edema and swelling over the anterior to the left side of the maxilla and mandible. There is also left- sided lateral neck soft tissue swelling. No focal bone destruction. No other pathologic enhancement. Review of Systems Constitutional: Reports fatigue, Reports lethargy Eyes: denies blurred vision, denies bulging eye, denies decreased vision Ears: deny: decreased hearing, ear discharge, earache Ears, nose, mouth and throat: Reports as per HPI, Reports mouth pain, Reports swelling in mouth Cardiovascular: Denies chest pain, Denies shortness of breath Respiratory: Denies cough Gastrointestinal: Denies abdominal pain, Denies diarrhea, Denies nausea, Denies vomiting Genitourinary: Reports as per HPI Musculoskeletal: Denies myalgias Musculoskeletal: absent: ankle pain, ankle stiffness, ankle swelling Integumentary: Reports as per HPI Neurological: Denies numbness, Denies weakness Psychiatric: Reports as per HPI Endocrine: Reports fatigue, Reports polydipsia, Reports polyuria Past Medical History Past Medical History: Diabetes Mellitus (type 1) Additional Past Medical History / Comment(s): DM since age 11, asthma only as a child History of Any Multi-Drug Resistant Organisms: None Reported Past Surgical History: Cholecystectomy Additional Past Surgical History / Comment(s): gallbladder removed 2014 Past Anesthesia/Blood Transfusion Reactions: Previous Problems w/ Anesthesia Past Psychological History: No Psychological Hx Reported Smoking Status: Never smoker Past Alcohol Use History: Occasional Past Drug Use History: None Reported - Past Family History Father Family Medical History: Hypertension, Seizure Disorder Additional Family Medical History / Comment(s): Grand mal seizures Mother Family Medical History: Hypertension Medications and Allergies Home Medications Medication Instructions Recorded Confirmed Type Cephalexin [Keflex] 500 mg PO Q12HR #20 cap 04/08/17 04/09/17 Rx Sulfamethox-Tmp 800-160Mg [Bactrim 1 tab PO Q12HR #20 tab 04/08/17 04/09/17 Rx DS 800-160 mg] Allergies Allergy/AdvReac Type Severity Reaction Status Date / Time adhesive tape Allergy Rash/Hives Verified 04/09/17 19:02 ibuprofen [From Motrin] AdvReac Rash/Hives Verified 04/09/17 19:03 Physical Exam Vitals: Vital Signs Temp Pulse Pulse Resp BP BP Pulse Ox 04/10/17 13:00 106 H 16 123/79 93 L 04/10/17 12:00 99.0 F 107 H 17 133/79 94 L 04/10/17 11:00 99.3 F 104 H 14 128/84 94 L 04/10/17 10:00 112 H 16 129/82 93 L 04/10/17 09:00 101 H 24 133/90 93 L 04/10/17 08:00 98.4 F 103 H 15 115/78 94 L 04/10/17 07:00 106 H 17 119/78 94 L 04/10/17 06:00 106 H 16 120/71 92 L 04/10/17 05:00 105 H 14 128/81 93 L 04/10/17 04:00 98.7 F 114 H 18 129/89 97 04/10/17 03:51 105 H 15 129/89 96 04/10/17 00:00 99.1 F 107 H 16 133/81 94 L 04/09/17 20:00 99.3 F 116 H 16 130/79 99 04/09/17 18:22 99 F 88 16 131/83 99 04/09/17 18:18 99 F 118 H 16 133/82 99 04/09/17 17:36 88 18 131/83 97 04/09/17 15:13 117 H 18 134/88 100 Intake and Output 04/09/17 04/10/17 04/10/17 22:59 06:59 14:59 Intake Total 30.047 070 8993 Output Total 0 Balance 30.361 749 3585 Intake: IV 500 800 Sodium Chloride 0.9% 1, 500 800 000 ml @ 150 mls/hr IV . Q6H40M [facility] Rx#:[id number] Intake, IV Titration 30.647 500 Amount Insulin Regular 100 unit 30.647 In Sodium Chloride 0.9% 100 ml @ 0.1 UNITS/KG/HR 7.33 mls/hr IV .[id number] [facility] Rx#:[id number] Magnesium Sulfate-D5w Pmx 200 1 gm In Dextrose/Water 1 100ml.bag @ 100 mls/hr IVPB Q1H [facility] Rx#: [id number] Piperacillin-Tazobactam 3 50 .375 gm In Dextrose/Water 1 50ml.bag @ 12.5 mls/hr IVPB Q8HR [facility] Rx#: [id number] Vancomycin 1,250 mg In 250 Sodium Chloride 0.9% 250 ml @ 125 mls/hr IVPB Q8HR [facility] Rx#:[id number] Output: Urine 0 Other: Voiding Method Toilet Urinal Urinal # Voids 1 Weight 72.575 kg 72.575 kg Patient Weight 04/11/17 06:59 Weight 72.575 kg Constitutional: No acute distress, conversant, pleasant Eyes:Anicteric sclerae, moist conjunctiva, no lid-lag, PERRLA, ENMT: left face swollen and there is scattered erythema, left side of the lip swollen and erythematous, Oropharynx clear and there is no stridor or any signs of airway compromise. Nevertheless, the left upper lip is very indurated and swollen and tender to touch and there are various draining abscesses within the lip edge with purulent material that can be visualized draining from the area. Neck: Supple, FROM, no masses, or JVD, No carotid bruits, No thyromegaly Lungs: Clear to auscultation, Clear to percussion, Normal respiratory effort, no accessory muscle use Cardiovascular: tachycardic, regular, No murmurs, gallops, or rubs, No peripheral edema Abdominal: Soft, Nontender, no guarding, rebound or rigidity, Normoactive bowel sounds, No hepatomegaly, No splenomegaly, No palpable mass Skin: Please refer to the above-mentioned description on the facial cellulitis/ abscess that developed over the past 24-48 hours. Otherwise the rest of the skin is within normal limits. Extremities: No digital cyanosis, No clubbing, Pedal pulses intact and symmetrical, Radial pulses intact and symmetrical, No calf tenderness Psychiatric: Alert and oriented to person, place and time, appropriate affect, intact judgement Neuro: Muscles Strength 5/5 in all 4 extremities, Sensation to light touch grossly present throughout, Cranial nerves II-XII grossly intact, no focal sensory deficits Results - Laboratory Findings CBC and BMP: 04/10/17 04:03 04/10/17 04:03 Abnormal lab findings: Abnormal Labs 04/09/17 04/09/17 04/09/17 13:24 13:24 13:24 WBC 12.6 H Hgb Hct Neutrophils # 11.2 H Lymphocytes # 0.8 L Sodium 132 L Chloride 94 L Carbon Dioxide 18 L Glucose 581 H* POC Glucose (mg/dL) Hemoglobin A1c 13.3 H Plasma Lactic Acid Koko AST Alkaline Phosphatase 146 H Total Protein 5.9 L Albumin Urine Glucose (UA) Urine Ketones 04/09/17 04/09/17 04/09/17 14:39 15:37 17:20 WBC Hgb Hct Neutrophils # Lymphocytes # Sodium 133 L Chloride 97 L Carbon Dioxide 21 L Glucose 370 H POC Glucose (mg/dL) 344 H Hemoglobin A1c Plasma Lactic Acid Koko AST Alkaline Phosphatase Total Protein Albumin Urine Glucose (UA) 4+ H Urine Ketones 2+ H 04/09/17 04/09/17 04/09/17 18:13 18:55 19:12 WBC Hgb Hct Neutrophils # Lymphocytes # Sodium Chloride Carbon Dioxide Glucose POC Glucose (mg/dL) 469 H 310 H Hemoglobin A1c Plasma Lactic Acid Koko 7.1 H* AST Alkaline Phosphatase Total Protein Albumin Urine Glucose (UA) Urine Ketones 04/09/17 04/09/17 04/09/17 20:33 21:26 21:34 WBC Hgb Hct Neutrophils # Lymphocytes # Sodium 133 L Chloride Carbon Dioxide Glucose 190 H POC Glucose (mg/dL) 215 H 201 H Hemoglobin A1c Plasma Lactic Acid Koko AST Alkaline Phosphatase Total Protein Albumin Urine Glucose (UA) Urine Ketones 04/09/17 04/09/17 04/10/17 22:57 22:57 01:11 WBC Hgb Hct Neutrophils # Lymphocytes # Sodium Chloride Carbon Dioxide Glucose POC Glucose (mg/dL) 127 H 323 H Hemoglobin A1c Plasma Lactic Acid Koko 2.1 H* AST Alkaline Phosphatase Total Protein Albumin Urine Glucose (UA) Urine Ketones 04/10/17 04/10/17 04/10/17 03:24 04:03 04:03 WBC Hgb 12.4 L Hct 37.3 L Neutrophils # 8.5 H Lymphocytes # Sodium 131 L Chloride Carbon Dioxide Glucose 223 H POC Glucose (mg/dL) 174 H Hemoglobin A1c Plasma Lactic Acid Koko AST 62 H Alkaline Phosphatase Total Protein 4.9 L Albumin 2.6 L Urine Glucose (UA) Urine Ketones 04/10/17 04/10/17 04/10/17 04:03 07:32 11:56 WBC Hgb Hct Neutrophils # Lymphocytes # Sodium Chloride Carbon Dioxide Glucose POC Glucose (mg/dL) 172 H 145 H Hemoglobin A1c Plasma Lactic Acid Koko 2.9 H* AST Alkaline Phosphatase Total Protein Albumin Urine Glucose (UA) Urine Ketones 04/10/17 12:34 WBC Hgb Hct Neutrophils # Lymphocytes # Sodium Chloride Carbon Dioxide Glucose POC Glucose (mg/dL) 134 H Hemoglobin A1c Plasma Lactic Acid Koko AST Alkaline Phosphatase Total Protein Albumin Urine Glucose (UA) Urine Ketones Assessment and Plan Plan: Assessment 1 DKA likely secondary to soft tissue infection/facial abscess/cellulitis. The patient presented with anion gap metabolic acidosis and treated with IV fluids and insulin drip and currently he is back on long-acting insulin with better control of his blood sugar. Anion gap has closed. 2 left facial/lip/ cellulitis with abscess formation. Awaiting an ENT evaluation and consultation for incision and drainage. The patient is currently on a combination of Zosyn and vancomycin. Plan The active issue for now is the infection/soft tissue infection is present in the left lip and facial area. There is concern that the infection itself may be extending over the past 24 hours. No appreciated again as or clearcut abscess formation on the CAT scan of the face and the para nasal sinuses are all clean. Nevertheless, there is a concern that is abscess formation especially that there are draining purulent material from the lip surface which may be connected to a deeper collection within the soft tissue of the face and the cheeks. The extraocular muscles are intact at this point. No signs of any meningitis. The patient remains on accommodation Zosyn and vancomycin. Awaiting ENT consultation. May need a maxillofacial specialist to have a look at the findings and the patient may potentially transfer. Prior to initiating any transfer, I would like for this patient to be seen by ENT and see if he is a candidate for any incision and drainage. Monitor blood sugar. Continue fluid hydration. Monitor fever pattern. Obtain cultures from the draining abscesses at the lip surface. Keep the patient in ICU. We'll continue to follow. No concerns for any airway compromise at this point.
[2017-04-10 17:13] LABS: Glucose,Whole Blood 185 mg/dL (75-99)
--- NOTE | 2017-04-10 19:21 | P.OP ---
Date of Procedure: 04/10/17 Preoperative Diagnosis: Left facial cellulitis with abscess Postoperative Diagnosis: same Procedure(s) Performed: Incision and drainage left lip/facial abscess Anesthesia: local Surgeon: Omid Pineda Estimated Blood Loss (ml): 5 Pathology: other (Culture and sensitivity Gram stain) Condition: stable Disposition: PACU Indications for Procedure: This patient developed a fairly large and rapidly expanding left facial cellulitis. There is an area of fluctuance along the lip area. The original site of the abscess occurred when the patient picked a acne area of the left upper lip. Fluctuance was noted and abscess suspected and an incision and drainage is warranted. All risks, benefits, and alternative therapies were discussed. Verbal consent was obtained. Operative Findings: Patient had a small abscess of the left upper lip that was opened and drained and cultured Description of Procedure: The left upper lip was sterilely prepped and draped in usual fashion the lip was anesthetized with lidocaine 1% with epinephrine 1 100,000. 10 minutes were allowed wait for full vasoconstrictive effects to take place. At this time an incision was made along the mucosa of the left upper lip over the area of fluctuance and an area of purulence was discovered. Cultures were taken. This area was widened with use of a hemostat. The patient tolerated this well. Compression was placed in the area and the patient tolerated this well. Very little bleeding was noted.
--- NOTE | 2017-04-10 19:27 | P.GSCN ---
History of Present Illness Consult date: 04/10/17 Reason for Consult: Left facial swelling left lip swelling Requesting physician: Lucina Hayward History of present illness: This is a 26-year-old white male diabetic who on Saturday has an area of acne of the left upper lip. He tells me that he picked that area and subsequently he had progressive swelling to the left upper lip and left face. He saw his primary care physician was treated with amoxicillin which did not seem to work he was later placed on Bactrim and Keflex which did not seem to work and later admitted to the hospital for IV antibiotics. He was admitted earlier this morning. He tells me that his facial swelling has progressed fairly rapidly over the last 24 hours and is quite concerned. Blood sugars were quite high and his diabetes needed to be managed. Review of Systems - Constitutional Reports fatigue, Reports lethargy - EENT Ears, nose, mouth and throat: Denies ant. neck pain - Cardiovascular Reports decreased exercise tolerance - Respiratory Denies congestion - Gastrointestinal Denies belching, Denies bloating - Genitourinary Denies discharge - Musculoskeletal Denies arm numbness/tingling - Integumentary Denies dryness - Neurological Denies balance difficulties - Psychiatric Denies anhedonia - Endocrine Denies flushing - Hematologic/Lymphatic Denies easy bleeding - Allergic/Immunologic Denies allergic rhinitis Past Medical History Past Medical History: Diabetes Mellitus (type 1) Additional Past Medical History / Comment(s): DM since age 11, asthma only as a child History of Any Multi-Drug Resistant Organisms: None Reported Past Surgical History: Cholecystectomy Additional Past Surgical History / Comment(s): gallbladder removed 2013 Past Anesthesia/Blood Transfusion Reactions: Previous Problems w/ Anesthesia Additional Past Anesthesia/Blood Transfusion Reaction / Comm: Pt states he "flips out" coming out of anesthesia Past Psychological History: No Psychological Hx Reported Smoking Status: Never smoker Past Alcohol Use History: Occasional Past Drug Use History: None Reported - Past Family History Father Family Medical History: Hypertension, Seizure Disorder Additional Family Medical History / Comment(s): Grand mal seizures Mother Family Medical History: Hypertension Medications and Allergies Home Medications Medication Instructions Recorded Confirmed Type Cephalexin [Keflex] 500 mg PO Q12HR #20 cap 04/08/17 04/09/17 Rx Sulfamethox-Tmp 800-160Mg [Bactrim 1 tab PO Q12HR #20 tab 04/08/17 04/09/17 Rx DS 800-160 mg] Allergies Allergy/AdvReac Type Severity Reaction Status Date / Time adhesive tape Allergy Rash/Hives Verified 04/09/17 19:02 ibuprofen [From Motrin] AdvReac Rash/Hives Verified 04/09/17 19:03 Surgical - Exam Osteopathic Statement: *. No significant issues noted on an osteopathic structural exam other than those noted in the History and Physical/Consult. Vital Signs Temp Pulse Resp BP Pulse Ox 99 F 112 H 18 136/96 99 04/09/17 11:17 04/09/17 11:17 04/09/17 11:17 04/09/17 11:17 04/09/17 11:17 - General well developed, well nourished - Eyes PERRL, normal ocular movement - ENT Left face is swollen. Lip demonstrates an area of fluctuance. No tumors or masses are palpable. Auricles are well-formed canals are clear. Nose is patent. Neck shows no tumors or masses. Mouth shows no signs of any dental etiology. normal pinna, normal nares, normal mucosa, no hearing loss, no congestion - Neck no masses, no bruits, no lymphadectomy - Respiratory normal expansion, normal respiratory effort - Neurologic normal coordination, normal sensation - Musculoskeletal normal gait, normal posture - Psychiatric oriented to time, oriented to person, oriented to place, speech is normal, memory intact Results - Labs 04/10/17 04:03 04/10/17 04:03 Abnormal Lab Results - Last 24 Hours (Table) 04/09/17 04/09/17 04/09/17 Range/Units 13:24 18:55 19:12 Hgb (13.0-17.5) gm/dL Hct (39.0-53.0) % Neutrophils # (1.3-7.7) k/uL Sodium (137-145) mmol/L Glucose (74-99) mg/dL POC Glucose (mg/dL) 310 H (75-99) mg/dL Hemoglobin A1c 13.3 H (4.0-6.0) % Plasma Lactic Acid Koko 7.1 H* (0.7-2.0) mmol/L AST (17-59) U/L Total Protein (6.3-8.2) g/dL Albumin (3.5-5.0) g/dL 04/09/17 04/09/17 04/09/17 Range/Units 20:33 21:26 21:34 Hgb (13.0-17.5) gm/dL Hct (39.0-53.0) % Neutrophils # (1.3-7.7) k/uL Sodium 133 L (137-145) mmol/L Glucose 190 H (74-99) mg/dL POC Glucose (mg/dL) 215 H 201 H (75-99) mg/dL Hemoglobin A1c (4.0-6.0) % Plasma Lactic Acid Koko (0.7-2.0) mmol/L AST (17-59) U/L Total Protein (6.3-8.2) g/dL Albumin (3.5-5.0) g/dL 04/09/17 04/09/17 04/10/17 Range/Units 22:57 22:57 01:11 Hgb (13.0-17.5) gm/dL Hct (39.0-53.0) % Neutrophils # (1.3-7.7) k/uL Sodium (137-145) mmol/L Glucose (74-99) mg/dL POC Glucose (mg/dL) 127 H 323 H (75-99) mg/dL Hemoglobin A1c (4.0-6.0) % Plasma Lactic Acid Koko 2.1 H* (0.7-2.0) mmol/L AST (17-59) U/L Total Protein (6.3-8.2) g/dL Albumin (3.5-5.0) g/dL 04/10/17 04/10/17 04/10/17 Range/Units 03:24 04:03 04:03 Hgb 12.4 L (13.0-17.5) gm/dL Hct 37.3 L (39.0-53.0) % Neutrophils # 8.5 H (1.3-7.7) k/uL Sodium 131 L (137-145) mmol/L Glucose 223 H (74-99) mg/dL POC Glucose (mg/dL) 174 H (75-99) mg/dL Hemoglobin A1c (4.0-6.0) % Plasma Lactic Acid Koko (0.7-2.0) mmol/L AST 62 H (17-59) U/L Total Protein 4.9 L (6.3-8.2) g/dL Albumin 2.6 L (3.5-5.0) g/dL 04/10/17 04/10/17 04/10/17 Range/Units 04:03 07:32 11:56 Hgb (13.0-17.5) gm/dL Hct (39.0-53.0) % Neutrophils # (1.3-7.7) k/uL Sodium (137-145) mmol/L Glucose (74-99) mg/dL POC Glucose (mg/dL) 172 H 145 H (75-99) mg/dL Hemoglobin A1c (4.0-6.0) % Plasma Lactic Acid Koko 2.9 H* (0.7-2.0) mmol/L AST (17-59) U/L Total Protein (6.3-8.2) g/dL Albumin (3.5-5.0) g/dL 04/10/17 04/10/17 Range/Units 12:34 17:11 Hgb (13.0-17.5) gm/dL Hct (39.0-53.0) % Neutrophils # (1.3-7.7) k/uL Sodium (137-145) mmol/L Glucose (74-99) mg/dL POC Glucose (mg/dL) 134 H 185 H (75-99) mg/dL Hemoglobin A1c (4.0-6.0) % Plasma Lactic Acid Koko (0.7-2.0) mmol/L AST (17-59) U/L Total Protein (6.3-8.2) g/dL Albumin (3.5-5.0) g/dL Microbiology - Last 24 Hours (Table) 04/10/17 09:52 Wound Culture - Preliminary Mouth 04/10/17 09:52 Anaerobic Culture - Preliminary Mouth 04/09/17 13:24 Blood Culture - Preliminary Blood No Growth after 24 hours Diabetes panel 04/09/17 04/09/17 04/10/17 Range/Units 13:24 21:34 04:03 Sodium 133 L 131 L (137-145) mmol/L Potassium 3.8 3.9 (3.5-5.1) mmol/L Chloride 99 99 (98-107) mmol/L Carbon Dioxide 25 24 (22-30) mmol/L BUN 9 10 (9-20) mg/dL Creatinine 1.02 0.90 (0.66-1.25) mg/dL Glucose 190 H 223 H (74-99) mg/dL Hemoglobin A1c 13.3 H (4.0-6.0) % Calcium 8.4 (8.4-10.2) mg/dL AST 62 H (17-59) U/L ALT 48 (21-72) U/L Alkaline Phosphatase 114 (38-126) U/L Total Protein 4.9 L (6.3-8.2) g/dL Albumin 2.6 L (3.5-5.0) g/dL Calcium panel 04/09/17 04/10/17 Range/Units 21:34 04:03 Calcium 8.4 (8.4-10.2) mg/dL Phosphorus 3.0 2.7 (2.5-4.5) mg/dL Albumin 2.6 L (3.5-5.0) g/dL Pituitary panel 04/09/17 04/10/17 Range/Units 21:34 04:03 Sodium 133 L 131 L (137-145) mmol/L Potassium 3.8 3.9 (3.5-5.1) mmol/L Chloride 99 99 (98-107) mmol/L Carbon Dioxide 25 24 (22-30) mmol/L BUN 9 10 (9-20) mg/dL Creatinine 1.02 0.90 (0.66-1.25) mg/dL Glucose 190 H 223 H (74-99) mg/dL Calcium 8.4 (8.4-10.2) mg/dL Adrenal panel 04/09/17 04/10/17 Range/Units 21:34 04:03 Sodium 133 L 131 L (137-145) mmol/L Potassium 3.8 3.9 (3.5-5.1) mmol/L Chloride 99 99 (98-107) mmol/L Carbon Dioxide 25 24 (22-30) mmol/L BUN 9 10 (9-20) mg/dL Creatinine 1.02 0.90 (0.66-1.25) mg/dL Glucose 190 H 223 H (74-99) mg/dL Calcium 8.4 (8.4-10.2) mg/dL Total Bilirubin 0.5 (0.2-1.3) mg/dL AST 62 H (17-59) U/L ALT 48 (21-72) U/L Alkaline Phosphatase 114 (38-126) U/L Total Protein 4.9 L (6.3-8.2) g/dL Albumin 2.6 L (3.5-5.0) g/dL Assessment and Plan (1) Facial abscess Current Visit: Yes Status: Acute Code(s): L02.01 - CUTANEOUS ABSCESS OF FACE SNOMED Code(s): 634071468 Plan: This patient underwent a incision and drainage with culture of a small left lip abscess. No other fluctuance was noted. We sent this for culture and sensitivity. Gram stain for also ordered. The usual etiology of this fascial cellulitis is usually strep or staph and vancomycin is an excellent choice. I would recommend that this patient stay elevated with his head at a 45 angle. Close observation and control of his diabetes is warranted. If this patient does not respond to medical therapy, I would recommend a consultation with infectious disease. Since I see no other areas of fluctuance or need for surgical intervention I will no longer be following this patient. If my services are warranted please do not hesitate to contact me. Best personal regards Time with Patient: Greater than 30
[2017-04-10 21:46] LABS: Glucose,Whole Blood 212 mg/dL (75-99)
[2017-04-10] MEDS: MUPIROCIN 2% OINT 22 GM TUBE TOPICAL SCH (22:10)
[2017-04-11] MEDS: HYDROmorphone 1 MG/ML 1 ML SYRINGE IVP PRN ×7 (01:09→22:10)
[2017-04-11] MEDS: SODIUM CHLORIDE 0.9% 1,000 ML IV SCH ×3 (03:12→17:56)
[2017-04-11] MEDS ORDERED: VANCOMYCIN TROUGH DUE 1 EACH MISC MISCELLANE ONE (07:00)
[2017-04-11 07:12] LABS: Glucose,Whole Blood 136 mg/dL (75-99)
[2017-04-11 08:24] LABS: Basophils % (A) 1 %; Eosinophils # (A) 0.1 k/uL (0-0.7); Eosinophils % (A) 2 %; HCT 36.5 % (39.0-53.0); Lymphocytes # (A) 0.8 k/uL (1.0-4.8); Lymphocytes % (A) 15 %; MCH 29.3 pg (25.0-35.0); MCHC 32.9 g/dL (31.0-37.0); MCV 88.9 fL (80.0-100.0); Mean Platelet Volume 7.9; Monocytes # (A) 0.3 k/uL (0-1.0); Monocytes % (A) 5 %; Neutrophils # (A) 3.9 k/uL (1.3-7.7); Neutrophils % (A) 76 %; Platelet Count 158 k/uL (150-450); RBC 4.11 m/uL (4.30-5.90); RDW 13.4 % (11.5-15.5); WBC 5.1 k/uL (3.8-10.6)
[2017-04-11] MEDS: PANTOPRAZOLE 40 MG TABLET PO SCH (08:27)
[2017-04-11] MEDS: INSULIN ASPART 100 UNIT/ML 1 ML 10 ML VIAL SQ SCH ×4 (08:27→20:12)
[2017-04-11] MEDS: HEPARIN SODIUM,PORCINE 5,000 UNIT/ML 1 ML VIAL SQ SCH ×2 (08:28→15:56)
[2017-04-11] MEDS: MUPIROCIN 2% OINT 22 GM TUBE TOPICAL SCH ×3 (08:28→20:13)
[2017-04-11 08:30] LABS: Anion Gap 4 mmol/L; Blood Urea Nitrogen 4 mg/dL (9-20); Carbon Dioxide 29 mmol/L (22-30); Chloride 104 mmol/L (98-107); Glucose 126 mg/dL (74-99); Magnesium 2.1 mg/dL (1.6-2.3); Phosphorus 2.6 mg/dL (2.5-4.5); Potassium 3.6 mmol/L (3.5-5.1); Sodium 137 mmol/L (137-145)
[2017-04-11] MEDS: PIPERACILLIN-TAZOBACTAM 3.375 GM in DEXTROSE/WATER 1 50ML.BAG IVPB SCH ×2 (09:04→17:56)
[2017-04-11] MEDS: VANCOMYCIN 1,250 MG in SODIUM CHLORIDE 0.9% 250 ML IVPB SCH ×2 (09:05→17:56)
[2017-04-11 11:12] LABS: Glucose,Whole Blood 202 mg/dL (75-99)
--- NOTE | 2017-04-11 12:03 | P.PN ---
Subjective Progress Note Date: 04/11/17 Principal diagnosis: Left facial swelling and pain. Feeling better, s/p I and D of the upper lip abscess, done by ENT yesterday. Objective - Vital Signs Vital signs: Vital Signs Temp 98.4 F 04/11/17 08:24 Pulse 99 04/11/17 08:24 Resp 16 04/11/17 08:24 BP 135/88 04/11/17 08:24 Pulse Ox 95 04/11/17 08:24 Intake & Output 04/10/17 04/11/17 04/11/17 18:59 06:59 18:59 Intake Total 2200 2500 180 Balance 2200 2500 180 Weight 72.575 kg Intake: IV 1400 1500 Sodium Chloride 0.9% 1, 1400 1500 000 ml @ 150 mls/hr IV . Q6H40M [facility] Rx#:[id number] Intake, IV Titration 800 Amount Magnesium Sulfate-D5w Pmx 200 1 gm In Dextrose/Water 1 100ml.bag @ 100 mls/hr IVPB Q1H [facility] Rx#: [id number] Piperacillin-Tazobactam 3 100 .375 gm In Dextrose/Water 1 50ml.bag @ 12.5 mls/hr IVPB Q8HR [facility] Rx#: [id number] Vancomycin 1,250 mg In 500 Sodium Chloride 0.9% 250 ml @ 125 mls/hr IVPB Q8HR [facility] Rx#:[id number] Oral 1000 180 Other: Voiding Method Toilet Toilet Toilet # Voids 1 1 1 - Exam Constitutional: No acute distress, conversant, pleasant Eyes:Anicteric sclerae, moist conjunctiva, no lid-lag, PERRLA, ENMT: left face swollen and there is scattered erythema, left side of the lip swollen and erythematous, Oropharynx clear, no erythema, exudates Neck: Supple, FROM, no masses, or JVD, No carotid bruits, No thyromegaly Lungs: Clear to auscultation, Clear to percussion, Normal respiratory effort, no accessory muscle use Cardiovascular: tachycardic, regular, No murmurs, gallops, or rubs, No peripheral edema Abdominal: Soft, Nontender, no guarding, rebound or rigidity, Normoactive bowel sounds, No hepatomegaly, No splenomegaly, No palpable mass Skin: Normal temperature, tone, texture, turgor, no induration, No subcutaneous nodules, No rash, lesions, No ulcers Extremities: No digital cyanosis, No clubbing, Pedal pulses intact and symmetrical, Radial pulses intact and symmetrical, No calf tenderness Psychiatric: Alert and oriented to person, place and time, appropriate affect, intact judgement Neuro: Muscles Strength 5/5 in all 4 extremities, Sensation to light touch grossly present throughout, Cranial nerves II-XII grossly intact, no focal sensory deficits - Labs CBC & Chem 7: 04/11/17 07:12 04/11/17 07:12 Labs: Abnormal Lab Results - Last 24 Hours (Table) 04/10/17 04/10/17 04/10/17 Range/Units 11:56 12:34 17:11 RBC (4.30-5.90) m/uL Hgb (13.0-17.5) gm/dL Hct (39.0-53.0) % Lymphocytes # (1.0-4.8) k/uL BUN (9-20) mg/dL Glucose (74-99) mg/dL POC Glucose (mg/dL) 145 H 134 H 185 H (75-99) mg/dL Calcium (8.4-10.2) mg/dL 04/10/17 04/11/17 04/11/17 Range/Units 21:44 07:08 07:12 RBC 4.11 L (4.30-5.90) m/uL Hgb 12.0 L (13.0-17.5) gm/dL Hct 36.5 L (39.0-53.0) % Lymphocytes # 0.8 L (1.0-4.8) k/uL BUN (9-20) mg/dL Glucose (74-99) mg/dL POC Glucose (mg/dL) 212 H 136 H (75-99) mg/dL Calcium (8.4-10.2) mg/dL 04/11/17 04/11/17 Range/Units 07:12 11:06 RBC (4.30-5.90) m/uL Hgb (13.0-17.5) gm/dL Hct (39.0-53.0) % Lymphocytes # (1.0-4.8) k/uL BUN 4 L (9-20) mg/dL Glucose 126 H (74-99) mg/dL POC Glucose (mg/dL) 202 H (75-99) mg/dL Calcium 8.0 L (8.4-10.2) mg/dL Microbiology - Last 24 Hours (Table) 04/10/17 09:52 Gram Stain - Preliminary Mouth Wound Culture - Preliminary Presumptive Staph aureus 04/10/17 19:17 Gram Stain - Preliminary Mouth Wound Culture - Preliminary 04/10/17 09:52 Anaerobic Culture - Preliminary Mouth 04/09/17 13:24 Blood Culture - Preliminary Blood No Growth after 24 hours Assessment and Plan Plan: 1-Acute left facial cellulitis/questionable abscess/Acute sepsis: Improving D/C Zosyn and continue vancomycin as wound cultures revealing staph aureus Labs reviewed---leukocytosis resolved Still tachycardic. Blood cultures negative so far. Pain control with dilaudid 2- Diabetic ketoacidosis: Likely induced by #1 Resolved, AG closed Insulin drip d/feroz Lantus 10 units daily SSI 3- DVT prophylaxis: SCDs
[2017-04-11 16:25] VITALS: RESP 16
[2017-04-11 17:10] LABS: Glucose,Whole Blood 292 mg/dL (75-99)
--- NOTE | 2017-04-11 17:27 | P.PN ---
Subjective Progress Note Date: 04/11/17 This is a pleasant 26-year-old male patient with type 1 diabetes mellitus maintained on Levemir insulin. The patient was in a good state of health until around 3-4 days ago where he popped a zip over the left lower lip corner. Subsequently within next 24-48 hours there has been significant changes along the left lip angle extending to his left face/cheek area and the patient started experiencing some facial swelling and redness and pain and this abnormality was extending to the lower edge of his left orbit. At the same time the patient was feeling increased pain and firmness and the cheek in the face area was quite indurated. He came into the emergency department with this complaint and he was identified to be in acute DKA. The patient's initial anion gap was around 20. His blood sugar was at 581. He was immediately admitted to the hospital and started on broad-spectrum antibiotics. He was also started on insulin drip and he was admitted to selective unit for further monitoring. The anion gap closed within next 12-24 hours and the patient was switched to long-acting Levemir insulin along with a sliding scale coverage. Overnight there was concern that they cellulitis of the face was getting worse and the hospitalist was attending a this patient was consented the patient may be progressing and he may even be having some airway compromise. Based on that the patient got moved to the intensive care unit and a pulmonary and critical care consultation was requested. I saw this patient this morning. In terms of his diabetes mellitus is anion gap is closed and his blood sugar is under better control. Nevertheless the facial abscess/cellulitis is quite a concern. There is obvious deformity which is evident on regular inspection. The left face cheek is quite swollen and the lip mainly the upper lip from the midline to the lip corner is quite swollen and tender and there is purulent material draining from the lip edge opening into the mouth. The buccal mucosa is quite inflamed and swollen in addition. The whole area is quite tender to touch and palpation. The swelling is mainly present over the lip area and to lesser extent to the face and extending to the left infraorbital area. The patient is able to speak. The patient does not have any respiratory difficulties. No signs of airway compromise and the patient has no stridor. A routine inspection his posterior oropharynx is quite patent. Note that he denies having any dental abscesses or jaw disease. The source of infection is thought to be related to the original pimple at the corner of his lip on the left side. No change in mental status. No headaches. No meningeal signs. Patient is covered with accommodation of Zosyn and vancomycin. A 80 consultation was placed in consultation for incision and drainage. I would like also to discuss this case with ENT in May consider transferring this patient to another facility where they have oral facial/maxillofacial expertise. Patient is hemodynamic is stable. The patient has no hypotension. Pulse oxing 93% on room air. He is afebrile for now. Computed tomography scan of the face showed normal examination of the past nasal sinuses. The posterior meatal complex was quite patent. There was soft tissue and subcutaneous edema and swelling over the anterior to the left side of the maxilla and mandible. There is also left- sided lateral neck soft tissue swelling. No focal bone destruction. No other pathologic enhancement. On 04/11/2017 the patient got moved out of the intensive care unit. Acute diabetic ketoacidosis is recovered. The patient was seen by ENT and the patient underwent drainage of the left facial cellulitis/abscess. Cultures still pending. His face is less swollen compared to yesterday. The lip however is still extensively tight and swollen. No fever or chills. Awaiting final cultures. His operative cultures is staph aureus. Objective - Vital Signs Vital signs: Vital Signs Temp 98.2 F 04/11/17 14:31 Pulse 97 04/11/17 14:31 Resp 16 04/11/17 14:31 BP 141/104 04/11/17 14:31 Pulse Ox 95 04/11/17 14:31 Intake & Output 04/10/17 04/11/17 04/11/17 18:59 06:59 18:59 Intake Total 2200 2500 1300 Balance 2200 2500 1300 Weight 72.575 kg Intake: IV 1400 1500 Sodium Chloride 0.9% 1, 1400 1500 000 ml @ 150 mls/hr IV . Q6H40M [facility] Rx#:[id number] Intake, IV Titration 800 Amount Magnesium Sulfate-D5w Pmx 200 1 gm In Dextrose/Water 1 100ml.bag @ 100 mls/hr IVPB Q1H [facility] Rx#: [id number] Piperacillin-Tazobactam 3 100 .375 gm In Dextrose/Water 1 50ml.bag @ 12.5 mls/hr IVPB Q8HR [facility] Rx#: [id number] Vancomycin 1,250 mg In 500 Sodium Chloride 0.9% 250 ml @ 125 mls/hr IVPB Q8HR [facility] Rx#:[id number] Oral 1000 1300 Other: Voiding Method Toilet Toilet Toilet # Voids 1 1 2 - Exam Constitutional: No acute distress, conversant, pleasant Eyes:Anicteric sclerae, moist conjunctiva, no lid-lag, PERRLA, ENMT: left face swollen and there is scattered erythema, left side of the lip swollen and erythematous, Oropharynx clear and there is no stridor or any signs of airway compromise. Nevertheless, the left upper lip is very indurated and swollen and tender to touch and there are various draining abscesses within the lip edge with purulent material that can be visualized draining from the area. The inner cheek has been incised and drained. Neck: Supple, FROM, no masses, or JVD, No carotid bruits, No thyromegaly Lungs: Clear to auscultation, Clear to percussion, Normal respiratory effort, no accessory muscle use Cardiovascular: tachycardic, regular, No murmurs, gallops, or rubs, No peripheral edema Abdominal: Soft, Nontender, no guarding, rebound or rigidity, Normoactive bowel sounds, No hepatomegaly, No splenomegaly, No palpable mass Skin: Please refer to the above-mentioned description on the facial cellulitis/ abscess that developed over the past 24-48 hours. Otherwise the rest of the skin is within normal limits. Extremities: No digital cyanosis, No clubbing, Pedal pulses intact and symmetrical, Radial pulses intact and symmetrical, No calf tenderness Psychiatric: Alert and oriented to person, place and time, appropriate affect, intact judgement Neuro: Muscles Strength 5/5 in all 4 extremities, Sensation to light touch grossly present throughout, Cranial nerves II-XII grossly intact, no focal sensory deficits - Labs CBC & Chem 7: 04/11/17 07:12 04/11/17 07:12 Labs: Abnormal Lab Results - Last 24 Hours (Table) 04/10/17 04/11/17 04/11/17 Range/Units 21:44 07:08 07:12 RBC 4.11 L (4.30-5.90) m/uL Hgb 12.0 L (13.0-17.5) gm/dL Hct 36.5 L (39.0-53.0) % Lymphocytes # 0.8 L (1.0-4.8) k/uL BUN (9-20) mg/dL Glucose (74-99) mg/dL POC Glucose (mg/dL) 212 H 136 H (75-99) mg/dL Calcium (8.4-10.2) mg/dL 04/11/17 04/11/17 04/11/17 Range/Units 07:12 11:06 17:04 RBC (4.30-5.90) m/uL Hgb (13.0-17.5) gm/dL Hct (39.0-53.0) % Lymphocytes # (1.0-4.8) k/uL BUN 4 L (9-20) mg/dL Glucose 126 H (74-99) mg/dL POC Glucose (mg/dL) 202 H 292 H (75-99) mg/dL Calcium 8.0 L (8.4-10.2) mg/dL Microbiology - Last 24 Hours (Table) 04/09/17 13:24 Blood Culture - Preliminary Blood No Growth after 48 hours 04/10/17 19:17 Anaerobic Culture - Preliminary Mouth 04/10/17 09:52 Gram Stain - Preliminary Mouth Wound Culture - Preliminary Presumptive Staph aureus 04/10/17 19:17 Gram Stain - Preliminary Mouth Wound Culture - Preliminary 04/10/17 09:52 Anaerobic Culture - Preliminary Mouth Assessment and Plan Plan: Assessment 1 DKA likely secondary to soft tissue infection/facial abscess/cellulitis, recovered 2 left facial/lip/ cellulitis with abscess formation. I&D by ENT and the patient presumably have an underlying staphylococcal infection. The patient is currently on a combination of Zosyn and vancomycin. Plan The patient has undergone incision and drainage and the cultures indicating staph aureus. Continue same antibiotic coverage. Monitor the abscess. Monitor the blood sugar control. No active pulmonary or critical care issue. I will sign off the case. I will leave the rest of the management up to ENT and medicine. He will also benefit from a infectious disease consultation
[2017-04-11 19:56] LABS: Glucose,Whole Blood 288 mg/dL (75-99)
[2017-04-11] MEDS: INSULIN DETEMIR 100 UNIT/ML 10 ML VIAL SQ SCH (20:11)
[2017-04-12] MEDS: SODIUM CHLORIDE 0.9% 1,000 ML IV SCH ×4 (01:06→21:16)
[2017-04-12] MEDS: HYDROmorphone 1 MG/ML 1 ML SYRINGE IVP PRN ×3 (01:16→07:46)
[2017-04-12] MEDS: VANCOMYCIN 1,250 MG in SODIUM CHLORIDE 0.9% 250 ML IVPB SCH ×4 (01:16→23:20)
[2017-04-12] MEDS: PIPERACILLIN-TAZOBACTAM 3.375 GM in DEXTROSE/WATER 1 50ML.BAG IVPB SCH ×2 (01:16→08:21)
[2017-04-12] MEDS: HEPARIN SODIUM,PORCINE 5,000 UNIT/ML 1 ML VIAL SQ SCH ×4 (01:16→23:20)
--- NOTE | 2017-04-12 01:28 | P.CONS ---
History of Present Illness - Reason for Consult Consult date: 04/11/17 - Chief Complaint left facial abscess - History of Present Illness 26-year-old male with history of diabetes mellitus type 1 for many years who has poor control of his blood sugars, most recent hemoglobin A1c is 13.3. The patient is had some difficulties with some skin lesions. However has developed extensive pain and swelling to the left upper liparea. It was very swollen painful and tender. He notices a small abscess in the area. And despite manipulation was unable to get it to drain. He was treated in the outpatient setting with amoxicillin and that did not allow any improvement. The site actually worsened considerably. Because he was admitted and has been seen by ENT and has had the incision and drainage surgically performed. He relates it is feeling better. Is able to eat and drink. Pain control is improved. His fever and chills have also improved. Blood sugars remain somewhat elevated but are improving. He currently was without significant high-grade fever chill or rigor. Denies other new symptoms. Review of Systems HEENT:Denies headache or acute visual change. developed a significant abscess as per the HPI of the left upper lip. Since drainage is improving. He will that she wouldn't swallow without great difficulties. Lungs: Denies significant shortness of breath, cough, sputum production, or hemoptysis. Cardiovascular: Denies significant shortness of breath, chest pain, chest wall pain, orthopnea, dyspnea on exertion, syncope Gastrointestinal:Denies nausea, vomiting, diarrhea, constipation, hematemesis, melena, hematochezia. No no significant change of bowel habit noticed. Musculoskeletal: denies significant myalgias or arthralgias. No new joint swelling. Denies new back pain. Skin: as per the HPI Neuro: Denies headache or visual change. Denies any new onset weakness or difficulty with ambulation. Denies falls or seizures. Psychiatric:Denies anxiety or depression. Endocrine: Denies significant fatigue, denies significant weight loss or weight gain. Past Medical History Past Medical History: Diabetes Mellitus (type 1) Additional Past Medical History / Comment(s): DM since age 11, asthma only as a child History of Any Multi-Drug Resistant Organisms: None Reported Past Surgical History: Cholecystectomy Additional Past Surgical History / Comment(s): gallbladder removed 2013 Past Anesthesia/Blood Transfusion Reactions: Previous Problems w/ Anesthesia Additional Past Anesthesia/Blood Transfusion Reaction / Comm: Pt states he "flips out" coming out of anesthesia Past Psychological History: No Psychological Hx Reported Additional Psychological History / Comment(s): single. No children. Does not work outside of the home. No extensive travel. The experience. No pets Smoking Status: Never smoker Past Alcohol Use History: Occasional Past Drug Use History: None Reported - Past Family History Father Family Medical History: Hypertension, Seizure Disorder Additional Family Medical History / Comment(s): Grand mal seizures Mother Family Medical History: Hypertension Medications and Allergies Home Medications and Allergies Comment(s): Current Medications Acetaminophen (Tylenol Tab) 650 mg PO Q6HR PRN PRN Reason: Mild Pain or Fever > 100.5 Acetaminophen (Tylenol Suppository) 650 mg RECTAL Q4HR PRN PRN Reason: Fever and/or Mild Pain Heparin Sodium (Porcine) (Heparin) 5,000 unit SQ Q8HR [facility] Last Admin: 04/12/17 01:16 Dose: 5,000 unit Hydromorphone HCl (Dilaudid) 0.5 mg IVP Q3HR PRN PRN Reason: Moderate Pain Last Admin: 04/11/17 05:38 Dose: 0.5 mg Hydromorphone HCl (Dilaudid) 1 mg IVP Q3HR PRN PRN Reason: Severe Pain Last Admin: 04/12/17 01:16 Dose: 1 mg Vancomycin HCl 1,250 mg/ (Sodium Chloride) 250 mls @ 125 mls/hr IVPB Q8HR [facility] Last Admin: 04/12/17 01:16 Dose: 125 mls/hr Piperacillin/Tazobactam/ (Dextrose 3.375 gm/ IV Solution) 50 mls @ 12.5 mls/hr IVPB Q8HR [facility] Last Admin: 04/12/17 01:16 Dose: 12.5 mls/hr Sodium Chloride (Saline 0.9%) 1,000 mls @ 150 mls/hr IV .Q6H40M [facility] Last Admin: 04/12/17 01:06 Dose: Not Given Insulin Aspart (Novolog) 0 unit SQ ACHS [facility] PRN Reason: Protocol Last Admin: 04/11/17 20:12 Dose: 5 unit Insulin Detemir (Levemir) 10 unit SQ HS [facility] Last Admin: 04/11/17 20:11 Dose: 10 unit Miscellaneous Information (Magnesium Per Protocol) 1 each MISCELLANE DAILY PRN ; Protocol PRN Reason: Per Protocol Mupirocin (Bactroban Oint) 1 applic TOPICAL TID [facility] Last Admin: 04/11/17 20:13 Dose: 1 applic Naloxone HCl (Narcan) 0.2 mg IV Q2M PRN PRN Reason: Opioid Reversal Ondansetron HCl (Zofran) 4 mg IVP Q8HR PRN PRN Reason: Nausea And Vomiting Pantoprazole Sodium (Protonix) 40 mg PO AC-BRKFST [facility] Last Admin: 04/11/17 08:27 Dose: 40 mg Home Medications Medication Instructions Recorded Confirmed Type Cephalexin [Keflex] 500 mg PO Q12HR #20 cap 04/08/17 04/09/17 Rx Sulfamethox-Tmp 800-160Mg [Bactrim 1 tab PO Q12HR #20 tab 04/08/17 04/09/17 Rx DS 800-160 mg] Allergies Allergy/AdvReac Type Severity Reaction Status Date / Time adhesive tape Allergy Rash/Hives Verified 04/09/17 19:02 ibuprofen [From Motrin] AdvReac Rash/Hives Verified 04/09/17 19:03 Physical Exam Vitals: Vital Signs Temp Pulse Resp BP Pulse Ox 04/11/17 14:31 98.2 F 97 16 141/104 95 04/11/17 08:24 98.4 F 99 16 135/88 95 04/11/17 02:15 97.7 F 102 H 16 148/98 94 L Intake and Output 04/11/17 04/11/17 04/12/17 14:59 22:59 06:59 Intake Total 1300 800 Balance 1300 800 Intake: IV 800 Sodium Chloride 0.9% 1, 800 000 ml @ 150 mls/hr IV . Q6H40M [facility] Rx#:[id number] Oral 1300 Other: Voiding Method Toilet # Voids 2 26-year-old male appears about his stated age presented with significant pain and swelling to the left upper lip. HEENT: Anicteric conjunctiva are pink and moist nasal mucosa grossly intact without significant lesions, there is no thrush.his surgical incision and drainage is noted on the left upper lip. There is no expressible purulence but the area remains very indurated and tender. Neck: The neck is supple without significant lymphadenopathy or thyromegaly. Lungs: Good bilateral air entry without significant crackles or wheezing. There is no significant bronchial sounds. There is no egophony or dullness. Heart: Regular rate and rhythm with an audible S1-S2, no S3 no S4. There is no significant murmur click or rub, PMI was nondisplaced. Abdomen: Positive bowel sounds soft and nontender without palpable masses or organomegaly. There was no guarding or rebound. Extremities: The upper extremities have excellent pulses they are symmetric, no significant petechiae or telangiectasia. No splinter hemorrhages were noted. The lower extremities are free from significant edema. The peripheral pulses were 2+ and symmetric. Neuro: Awake alert oriented to person place and time. There are no acute new gross focal sensory motor deficits. Results CBC & Chem 7: 04/11/17 07:12 04/11/17 07:12 Labs: Abnormal Lab Results - Last 24 Hours (Table) 04/11/17 04/11/17 04/11/17 Range/Units 07:08 07:12 07:12 RBC 4.11 L (4.30-5.90) m/uL Hgb 12.0 L (13.0-17.5) gm/dL Hct 36.5 L (39.0-53.0) % Lymphocytes # 0.8 L (1.0-4.8) k/uL BUN 4 L (9-20) mg/dL Glucose 126 H (74-99) mg/dL POC Glucose (mg/dL) 136 H (75-99) mg/dL Calcium 8.0 L (8.4-10.2) mg/dL 04/11/17 04/11/17 04/11/17 Range/Units 11:06 17:04 19:39 RBC (4.30-5.90) m/uL Hgb (13.0-17.5) gm/dL Hct (39.0-53.0) % Lymphocytes # (1.0-4.8) k/uL BUN (9-20) mg/dL Glucose (74-99) mg/dL POC Glucose (mg/dL) 202 H 292 H 288 H (75-99) mg/dL Calcium (8.4-10.2) mg/dL Microbiology - Last 24 Hours (Table) 04/10/17 19:17 Gram Stain - Preliminary Mouth Wound Culture - Preliminary Presumptive Staph aureus 04/09/17 13:24 Blood Culture - Preliminary Blood No Growth after 48 hours 04/10/17 19:17 Anaerobic Culture - Preliminary Mouth 04/10/17 09:52 Gram Stain - Preliminary Mouth Wound Culture - Preliminary Presumptive Staph aureus Laboratory Results WBC 5.1 k/uL (3.8-10.6) 04/11/17 07:12 RBC 4.11 m/uL (4.30-5.90) L 04/11/17 07:12 Hgb 12.0 gm/dL (13.0-17.5) L 04/11/17 07:12 Hct 36.5 % (39.0-53.0) L 04/11/17 07:12 MCV 88.9 fL (80.0-100.0) 04/11/17 07:12 MCH 29.3 pg (25.0-35.0) 04/11/17 07:12 MCHC 32.9 g/dL (31.0-37.0) 04/11/17 07:12 RDW 13.4 % (11.5-15.5) 04/11/17 07:12 Plt Count 158 k/uL (150-450) 04/11/17 07:12 Neutrophils % 76 % 04/11/17 07:12 Lymphocytes % 15 % 04/11/17 07:12 Monocytes % 5 % 04/11/17 07:12 Eosinophils % 2 % 04/11/17 07:12 Basophils % 1 % 04/11/17 07:12 Neutrophils # 3.9 k/uL (1.3-7.7) 04/11/17 07:12 Lymphocytes # 0.8 k/uL (1.0-4.8) L 04/11/17 07:12 Monocytes # 0.3 k/uL (0-1.0) 04/11/17 07:12 Eosinophils # 0.1 k/uL (0-0.7) 04/11/17 07:12 Basophils # 0.0 k/uL (0-0.2) 04/11/17 07:12 Sodium 137 mmol/L (137-145) 04/11/17 07:12 Potassium 3.6 mmol/L (3.5-5.1) 04/11/17 07:12 Chloride 104 mmol/L (98-107) 04/11/17 07:12 Carbon Dioxide 29 mmol/L (22-30) 04/11/17 07:12 Anion Gap 4 mmol/L 04/11/17 07:12 BUN 4 mg/dL (9-20) L 04/11/17 07:12 Creatinine 0.82 mg/dL (0.66-1.25) 04/11/17 07:12 Est GFR (MDRD) Af Amer >60 (>60 ml/min/1.73 sqM) 04/11/17 07:12 Est GFR (MDRD) Non-Af >60 (>60 ml/min/1.73 sqM) 04/11/17 07:12 Glucose 126 mg/dL (74-99) H 04/11/17 07:12 POC Glucose (mg/dL) 288 mg/dL (75-99) H 04/11/17 19:39 POC Glu [employer] SHANON Tori Russell 04/11/17 19:[address] Glu mg/dL 335 04/09/17 13:24 Hemoglobin A1c 13.3 % (4.0-6.0) H 04/09/17 13:24 Lactic Ac Sepsis Rflx Y 04/10/17 06:02 Plasma Lactic Acid Koko 1.4 mmol/L (0.7-2.0) 04/10/17 09:19 Calcium 8.0 mg/dL (8.4-10.2) L 04/11/17 07:12 Phosphorus 2.6 mg/dL (2.5-4.5) 04/11/17 07:12 Magnesium 2.1 mg/dL (1.6-2.3) 04/11/17 07:12 Total Bilirubin 0.5 mg/dL (0.2-1.3) 04/10/17 04:03 AST 62 U/L (17-59) H 04/10/17 04:03 ALT 48 U/L (21-72) 04/10/17 04:03 Alkaline Phosphatase 114 U/L (38-126) 04/10/17 04:03 Total Protein 4.9 g/dL (6.3-8.2) L 04/10/17 04:03 Albumin 2.6 g/dL (3.5-5.0) L 04/10/17 04:03 Urine Color Colorless 04/09/17 14:39 Urine Appearance Clear (Clear) 04/09/17 14:39 Urine pH 5.5 (5.0-8.0) 04/09/17 14:39 Ur Specific [place] 1.023 (1.001-1.035) 04/09/17 14:39 Urine Protein Negative (Negative) 04/09/17 14:39 Urine Glucose (UA) 4+ (Negative) H 04/09/17 14:39 Urine Ketones 2+ (Negative) H 04/09/17 14:39 Urine Blood Negative (Negative) 04/09/17 14:39 Urine Nitrite Negative (Negative) 04/09/17 14:39 Urine Bilirubin Negative (Negative) 04/09/17 14:39 Urine Urobilinogen <2.0 mg/dL (<2.0) 04/09/17 14:39 Ur Leukocyte Esterase Negative (Negative) 04/09/17 14:39 Vancomycin Trough 16.9 ug/mL 04/11/17 07:12 Acetone, Qual Positive (Negative) 04/09/17 13:24 Microbiology 04/10/17 19:17 Mouth Gram Stain - Preliminary 04/10/17 19:17 Mouth Wound Culture - Preliminary Presumptive Staph aureus 04/09/17 13:24 Blood Blood Culture - Preliminary No Growth after 48 hours 04/10/17 19:17 Mouth Anaerobic Culture - Preliminary 04/10/17 09:52 Mouth Gram Stain - Preliminary 04/10/17 09:52 Mouth Wound Culture - Preliminary Presumptive Staph aureus 04/10/17 09:52 Mouth Anaerobic Culture - Preliminary Assessment and Plan (1) Facial abscess Narrative/Plan: 26-year-old male presents to Hospital significant onset of pain and swelling to the left upper lip. Was treated in the outpatient setting with amoxicillin with lack of improvement. Required admission for his significant infection and resultant diabetic ketoacidosis. Insulin drip was stopped and is doing somewhat better. Cultures are now pending with staph aureus of undetermined type an anaerobic culture pending. He is currently responding wellantibiotic therapy of Zosyn and vancomycin. Once cultures available with him be able to determine best possible option of antibiotic therapy at discharge. The patient relates his inability with his parents after the discharge which is up near [place]. Hopefully will be a candidate for oral antimicrobial therapy at discharge, blood cultures will help determine this. Pain control is adequate. Warm and cool compresses may help with some of the swelling. DKA is under good control. Patient understands that his underlying elevated blood glucoses are at the basis of his current infection problem. Current Visit: Yes Status: Acute Code(s): L02.01 - CUTANEOUS ABSCESS OF FACE SNOMED Code(s): 143854154 (2) Diabetic keto-acidosis Current Visit: Yes Status: Acute Code(s): E13.10 - OTH DIABETES MELLITUS WITH KETOACIDOSIS WITHOUT COMA SNOMED Code(s): 546173247 (3) Leukocytosis Current Visit: Yes Status: Acute Code(s): D72.829 - ELEVATED WHITE BLOOD CELL COUNT, UNSPECIFIED SNOMED Code(s): 317318596
[2017-04-12 07:14] LABS: Basophils % (A) 1 %; Eosinophils # (A) 0.2 k/uL (0-0.7); Eosinophils % (A) 4 %; HCT 37.5 % (39.0-53.0); HGB 12.1 gm/dL (13.0-17.5); Lymphocytes % (A) 24 %; MCH 29.3 pg (25.0-35.0); MCHC 32.4 g/dL (31.0-37.0); MCV 90.5 fL (80.0-100.0); Mean Platelet Volume 7.7; Monocytes # (A) 0.2 k/uL (0-1.0); Monocytes % (A) 6 %; Neutrophils # (A) 2.6 k/uL (1.3-7.7); Neutrophils % (A) 63 %; Platelet Count 176 k/uL (150-450); RBC 4.14 m/uL (4.30-5.90); RDW 13.4 % (11.5-15.5); WBC 4.1 k/uL (3.8-10.6)
[2017-04-12 07:21] LABS: Anion Gap 5 mmol/L; Blood Urea Nitrogen 9 mg/dL (9-20); Calcium 8.3 mg/dL (8.4-10.2); Carbon Dioxide 27 mmol/L (22-30); Chloride 109 mmol/L (98-107); Glucose 132 mg/dL (74-99); Magnesium 2.1 mg/dL (1.6-2.3); Potassium 3.8 mmol/L (3.5-5.1); Sodium 141 mmol/L (137-145)
[2017-04-12] MEDS: PANTOPRAZOLE 40 MG TABLET PO SCH (07:40)
[2017-04-12] MEDS: MUPIROCIN 2% OINT 22 GM TUBE TOPICAL SCH ×3 (07:41→21:14)
[2017-04-12 07:58] LABS: Glucose,Whole Blood 153 mg/dL (75-99)
[2017-04-12] MEDS: INSULIN ASPART 100 UNIT/ML 1 ML 10 ML VIAL SQ SCH ×4 (08:21→21:14)
[2017-04-12] MEDS ORDERED: HYDROmorphone 2 MG/ML 1 ML SYRINGE IVP PRN (08:48)
[2017-04-12] MEDS: HYDROmorphone 2 MG/ML 1 ML SYRINGE IVP PRN ×3 (10:51→21:18)
[2017-04-12 12:09] LABS: Glucose,Whole Blood 250 mg/dL (75-99)
--- NOTE | 2017-04-12 14:08 | P.PN ---
Subjective Progress Note Date: 04/12/17 Principal diagnosis: Left facial swelling and pain. Feeling better but is still having significant pain in the left face/lip. Objective - Vital Signs Vital signs: Vital Signs Temp 97.9 F 04/12/17 07:00 Pulse 78 04/12/17 07:00 Resp 16 04/12/17 01:16 BP 122/74 04/12/17 07:00 Pulse Ox 97 04/12/17 07:00 Intake & Output 04/11/17 04/12/17 04/12/17 18:59 06:59 18:59 Intake Total 1300 1600 1000 Balance 1300 1600 1000 Weight 78.5 kg Intake: IV 1600 1000 Sodium Chloride 0.9% 1, 1600 1000 000 ml @ 150 mls/hr IV . Q6H40M [facility] Rx#:[id number] Oral 1300 Other: Voiding Method Toilet # Voids 2 3 3 - Exam Constitutional: No acute distress, conversant, pleasant Eyes:Anicteric sclerae, moist conjunctiva, no lid-lag, PERRLA, ENMT: left face swollen and there is scattered erythema, left side of the lip swollen and erythematous, Oropharynx clear, no erythema, exudates Neck: Supple, FROM, no masses, or JVD, No carotid bruits, No thyromegaly Lungs: Clear to auscultation, Clear to percussion, Normal respiratory effort, no accessory muscle use Cardiovascular: tachycardic, regular, No murmurs, gallops, or rubs, No peripheral edema Abdominal: Soft, Nontender, no guarding, rebound or rigidity, Normoactive bowel sounds, No hepatomegaly, No splenomegaly, No palpable mass Skin: Normal temperature, tone, texture, turgor, no induration, No subcutaneous nodules, No rash, lesions, No ulcers Extremities: No digital cyanosis, No clubbing, Pedal pulses intact and symmetrical, Radial pulses intact and symmetrical, No calf tenderness Psychiatric: Alert and oriented to person, place and time, appropriate affect, intact judgement Neuro: Muscles Strength 5/5 in all 4 extremities, Sensation to light touch grossly present throughout, Cranial nerves II-XII grossly intact, no focal sensory deficits - Labs CBC & Chem 7: 04/12/17 06:31 04/12/17 06:31 Labs: Abnormal Lab Results - Last 24 Hours (Table) 04/11/17 04/11/17 04/12/17 Range/Units 17:04 19:39 06:31 RBC 4.14 L (4.30-5.90) m/uL Hgb 12.1 L (13.0-17.5) gm/dL Hct 37.5 L (39.0-53.0) % Chloride (98-107) mmol/L Glucose (74-99) mg/dL POC Glucose (mg/dL) 292 H 288 H (75-99) mg/dL Calcium (8.4-10.2) mg/dL 04/12/17 04/12/17 04/12/17 Range/Units 06:31 07:13 12:05 RBC (4.30-5.90) m/uL Hgb (13.0-17.5) gm/dL Hct (39.0-53.0) % Chloride 109 H (98-107) mmol/L Glucose 132 H (74-99) mg/dL POC Glucose (mg/dL) 153 H 250 H (75-99) mg/dL Calcium 8.3 L (8.4-10.2) mg/dL Microbiology - Last 24 Hours (Table) 04/10/17 09:52 Anaerobic Culture - Preliminary Mouth Fatimah albicans 04/10/17 19:17 Gram Stain - Preliminary Mouth Wound Culture - Preliminary Presumptive Staph aureus 04/09/17 13:24 Blood Culture - Preliminary Blood No Growth after 48 hours 04/10/17 19:17 Anaerobic Culture - Preliminary Mouth 04/10/17 09:52 Gram Stain - Preliminary Mouth Wound Culture - Preliminary Presumptive Staph aureus Assessment and Plan Plan: 1-Acute left facial cellulitis/questionable abscess/Acute sepsis: Improving D/C Zosyn and continue vancomycin as wound cultures revealing staph aureus ID consulted Blood cultures negative so far. Pain control with dilaudid Tachycardia resolved. 2- Type 1 DM with DKA on admission Likely induced by #1 Resolved, AG closed BG uncontrolled--increase lantus to 18 units daily SSI 3- DVT prophylaxis: SCDs
--- NOTE | 2017-04-12 14:37 | P.PN ---
Progress Note - Text Progress Note Date: 04/12/17 As noted patient is improving. Diabetes under better control. However cultures are still pending. Once available please notify me so we can constructor plan for his outpatient antibiotic therapy. Plan will be for oral therapy if possible.
[2017-04-12 15:45] VITALS: BMI 25.5
[2017-04-12 18:01] LABS: Glucose,Whole Blood 343 mg/dL (75-99)
[2017-04-12] MEDS ORDERED: INSULIN DETEMIR 100 UNIT/ML 10 ML VIAL SQ SCH (21:00)
[2017-04-12 21:18] LABS: Glucose,Whole Blood 381 mg/dL (75-99)
[2017-04-13] MEDS: HYDROmorphone 2 MG/ML 1 ML SYRINGE IVP PRN ×3 (01:03→13:32)
[2017-04-13] MEDS: SODIUM CHLORIDE 0.9% 1,000 ML IV SCH (02:53)
[2017-04-13 06:57] LABS: Glucose,Whole Blood 118 mg/dL (75-99)
[2017-04-13] MEDS ORDERED: VANCOMYCIN TROUGH DUE 1 EACH MISC MISCELLANE ONE (07:00)
[2017-04-13 07:45] LABS: Basophils % (A) 1 %; Eosinophils # (A) 0.2 k/uL (0-0.7); Eosinophils % (A) 5 %; HCT 34.6 % (39.0-53.0); HGB 11.6 gm/dL (13.0-17.5); Lymphocytes # (A) 1.2 k/uL (1.0-4.8); Lymphocytes % (A) 33 %; MCH 29.2 pg (25.0-35.0); MCHC 33.5 g/dL (31.0-37.0); MCV 87.2 fL (80.0-100.0); Mean Platelet Volume 6.8; Monocytes # (A) 0.2 k/uL (0-1.0); Monocytes % (A) 7 %; Neutrophils # (A) 1.8 k/uL (1.3-7.7); Neutrophils % (A) 51 %; Platelet Count 229 k/uL (150-450); RBC 3.97 m/uL (4.30-5.90); RDW 12.2 % (11.5-15.5); WBC 3.6 k/uL (3.8-10.6)
[2017-04-13 08:07] LABS: Anion Gap 4 mmol/L; Blood Urea Nitrogen 9 mg/dL (9-20); Calcium 8.4 mg/dL (8.4-10.2); Carbon Dioxide 29 mmol/L (22-30); Chloride 108 mmol/L (98-107); Glucose 117 mg/dL (74-99); Magnesium 1.9 mg/dL (1.6-2.3); Phosphorus 4.4 mg/dL (2.5-4.5); Potassium 3.8 mmol/L (3.5-5.1); Sodium 141 mmol/L (137-145)
[2017-04-13] MEDS: HEPARIN SODIUM,PORCINE 5,000 UNIT/ML 1 ML VIAL SQ SCH (09:21)
[2017-04-13] MEDS: INSULIN ASPART 100 UNIT/ML 1 ML 10 ML VIAL SQ SCH ×2 (09:21→13:34)
[2017-04-13] MEDS: PANTOPRAZOLE 40 MG TABLET PO SCH (09:21)
[2017-04-13] MEDS: VANCOMYCIN 1,250 MG in SODIUM CHLORIDE 0.9% 250 ML IVPB SCH (09:22)
[2017-04-13] MEDS: MUPIROCIN 2% OINT 22 GM TUBE TOPICAL SCH (09:24)
[2017-04-13 11:32] LABS: Glucose,Whole Blood 160 mg/dL (75-99)
[2017-04-13 14:34] VITALS: BP 149/103; PULSE 79; TEMP 97.9
--- NOTE | 2017-04-13 15:29 | P.DS ---
Providers Date of admission: 04/09/17 15:36 Expected date of discharge: 04/13/17 Attending physician: Lucina Hayward MD Consults: 04/09/17 18:59 Consult Physician Urgent Consulting Provider: Omid Pineda Consult Reason/Comments: possible facial abscess Do you want consulting provider notified?: Yes 04/10/17 02:34 Consult Physician Urgent Consulting Provider: Samina Joaquin Consult Reason/Comments: facial swelling, Potential airway compromise Do you want consulting provider notified?: Yes 04/10/17 08:49 Consult Physician Routine Consulting Provider: Samina Joaquin Consult Reason/Comments: icu management Do you want consulting provider notified?: Yes 04/10/17 19:09 Consult Physician Routine Consulting Provider: Boni Herrera Consult Reason/Comments: facial cellultis/diabetes Do you want consulting provider notified?: Yes Primary care physician: Stated None Hospital Course: 26-year-old male who presents to the emergency department with chief complaint of left sided facial swelling, redness and pain. Patient was seen in the emergency department yesterday with complaint of left upper lip swelling. 2 nights ago he attempted to pop a small pimple on his left upper lip and when he woke the next morning his lip was tender and swollen. According to the emergency physician's note yesterday his left upper lip was indurated and firm. Today patient presents to the emergency department with chief complaint of spreading of the swelling, redness to all of the left side of the face. He states when he awoke this morning his left jaw, cheek and eye were swollen and painful. Patient states that he had some amoxicillin left over at home so took that last night. He did not refill his prescription of Bactrim that he was given yesterday in the emergency department. Denies fever, chills, chest pain, shortness of breath, abdominal pain, nausea or vomiting, constipation or diarrhea, dysuria or hematuria, numbness or tingling, headache or vision changes. On exam patient was tachycardic and had some leukocytosis on laboratory testing. The left lip/left side of the face was severely swollen and painful to touch. He met sepsis criteria, he was diagnosed with severe sepsis because his lactic acid was 7. Patient was initially in diabetic ketoacidosis as well with an anion gap of 20, he was started on insulin drip. He was also treated with IV antibiotics initially Zosyn and vancomycin. Later throughout the admission his anion gap closed and he was switched to subcu insulin. Patient was seen by ENT Dr. Omid Pineda who did incision and drainage of lip/facial abscess, also he had a computed tomography scan of his face that did not show any radiologic evidence of abscess or fluid collection. Wound cultures eventually revealed MSSA. Today the swelling in the pain in his left face has gone significantly down. He will be discharged home in stable condition. He already has a prescription for Keflex at home. Patient was instructed to follow with his primary care physician as soon as possible after discharge. He was also told that his diabetes needs to be under better control , I told him to follow up more frequently with his primary care physician to achieve that goal. Patient Condition at Discharge: Stable Plan - Discharge Summary Discharge Rx Participant: Yes New Discharge Prescriptions: New Acetaminophen Tab [Tylenol] 650 mg PO Q6HR PRN tab PRN Reason: Mild Pain Or Fever > 100.5 Insulin Aspart [NovoLOG (formulary)] 0 unit SQ ACHS vial Insulin Detemir [Levemir] 18 unit SQ HS syr Continue Cephalexin [Keflex] 500 mg PO Q12HR #20 cap Discontinued Sulfamethox-Tmp 800-160Mg [Bactrim DS 800-160 mg] 1 tab PO Q12HR #20 tab Discharge Medication List Cephalexin [Keflex] 500 mg PO Q12HR #20 cap 04/08/17 [Rx] Acetaminophen Tab [Tylenol] 650 mg PO Q6HR PRN tab 04/13/17 [Rx] Insulin Aspart [NovoLOG (formulary)] 0 unit SQ ACHS vial 04/13/17 [Rx] Insulin Detemir [Levemir] 18 unit SQ HS syr 04/13/17 [Rx] Follow up Appointment(s)/Referral(s): None,Stated [Primary Care Provider] - 1-2 days Vero Watson MD [STAFF PHYSICIAN] - 1 Week
[2017-04-13] MEDS ORDERED: VANCOMYCIN 1,000 MG in SODIUM CHLORIDE 0.9% 250 ML IVPB SCH (16:00)
== END 2017-04-13 16:09 | disposition home or self-care (01) | DRG 871 ==
LOC: EC 10:46 → 6SEL 15:36 → 6ICU 04-10 03:50 → 3SUR 04-11 02:08
PROVIDERS: ADMIT Internal Medicine; ATTEND Internal Medicine
PROC: 0H91XZZ Drainage of Face Skin, External Approach (ICD-10-PCS; principal; 2017-04-09)
DX: A41.01 Sepsis due to Methicillin susceptible Staphylococcus aureus (principal); E10.10 Type 1 diabetes mellitus with ketoacidosis without coma; L03.211 Cellulitis of face; K13.0 Diseases of lips; R65.20 Severe sepsis without septic shock; Z79.4 Long term (current) use of insulin; Z88.6 Allergy status to analgesic agent; Z90.49 Acquired absence of other specified parts of digestive tract; Z82.49 Family history of ischemic heart disease and other diseases of the circulatory system
CPT/HCPCS: 36415; 70487; 80048; 80051; 80053; 80202; 81003; 82009; 82565; 82947; 83036; 83605; 83735; 84100; 84520; 85025; 87040; 87070; 87075; 87077; 87186; 87205; 96361; 96365; 96367; 96375; 96376; 99285